=== PATIENT | male | born 1960 | race Caucasian/White ===

== ENCOUNTER 2016-11-28 01:14 | Emergency (ER) | payer MEDICARE, OTHER ==
[~2016-11-28] VITALS: Ht 170.2 cm; Wt 140.0 kg
[~2016-11-28 01:14] MED LIST: ACET500C15 PO; ACET500V IVPush; ALBU0.63 NEB; AMOX1TAB12 PO; ATOR10TA9 PO; CLIN-60 PO; ETOD400T PO; FLUT15.88 INH; FURO-93 PO; FURO40TA6 PO; GEMF600T3 PO; GLIP10TA13 PO; HYDR-3138 PO; HYDR-3341 PO; INSU100C5 SQ-INSULIN; INSU100I18 SQ-INSULIN; INSU100I28 SQ-INSULIN; INSU100V8 SQ; IPRA3AMP IPPB; LISI-170 PO; METF10002 PO; METF500T PO; METO200T3 PO; METO25TA35 PO; MULT-108 PO; Magnesium Oxide PO; NICO1PAT10 TD; NYST60PO TP; POTA10TA5 PO; POTA20TA14 PO; SPIR25TA3 PO; VITA1TAB14 PO; VITS42.5 TD; ZIPR20CA2 PO; ZIPR40CA3 PO
[2016-11-28 01:19] VITALS: BP 136/70
[2016-11-28] MEDS ORDERED: ACETAMINOPHEN 325 MG TABLET PO ONE (01:30)
[2016-11-28] MEDS ORDERED: ACETAMINOPHEN 500 MG TABLET ONE (01:31)
== END 2016-11-28 02:35 | disposition home or self-care (01) ==
LOC: ED 01:21
DX: M79.1 Myalgia (principal); E11.9 Type 2 diabetes mellitus without complications; E78.00 Pure hypercholesterolemia, unspecified; F31.9 Bipolar disorder, unspecified; I11.9 Hypertensive heart disease without heart failure
CPT/HCPCS: 99283

== ENCOUNTER 2017-11-25 01:35 | Inpatient (IN) | payer MEDICARE, OTHER ==
[~2017-11-25] VITALS: Ht 170.2 cm; Wt 165.2 kg
[~2017-11-25 01:35] MED LIST changes: -ACET500V IVPush; +ACET500V7 IVPush; -CLIN-60 PO; +CLIN150C14 PO; -HYDR-3138 PO; +HYDR-3237 PO; -METO200T3 PO; +METO200T47 PO; +NICO-485 TD; -NICO1PAT10 TD
[2017-11-25] MEDS ORDERED: ZIPR60CA3 PO (01:46)
[2017-11-25] MEDS ORDERED: LATA2.5D2 EACHEYE (01:47)
[2017-11-25] MEDS ORDERED: INSU100V8 SQ ×2 (01:48→04:21)
[2017-11-25] MEDS ORDERED: FURO40TA6 PO (01:48)
[2017-11-25] MEDS ORDERED: LISI-170 PO (01:49)
[2017-11-25] MEDS ORDERED: METO200T47 PO (01:50)
[2017-11-25] MEDS ORDERED: METF500T27 PO (01:50)
[2017-11-25] MEDS ORDERED: RANI150C PO (01:51)
[2017-11-25] MEDS ORDERED: ALBU90AE INH (01:52)
[2017-11-25] MEDS ORDERED: CYCL-259 PO (01:53)
[2017-11-25] MEDS ORDERED: ATOR40TA78 PO (01:54)
[2017-11-25] MEDS ORDERED: ONDANSETRON ODT 4 MG ONE (01:56)
[2017-11-25] MEDS ORDERED: PROMETHAZINE 25 MG/ML, 1ML ONE (01:56)
[2017-11-25] MEDS ORDERED: ONDANSETRON ODT 4 MG PO ONE (02:00)
[2017-11-25] MEDS ORDERED: SODIUM CHLORIDE 0.9% 1,000ML IVBOLUS ONE (02:00)
[2017-11-25] MEDS ORDERED: PROMETHAZINE 25 MG/ML, 1ML IM ONE (02:00)
[2017-11-25] MEDS ORDERED: SODIUM CHLORIDE FLUSH 10ML SYR IVF ONE (02:00)
[2017-11-25 02:24] LABS: MEAN CORPUSCULAR HEMOGLOBIN 26.8 pg (27.5-34.5); MEAN CORPUSCULAR VOLUME 83.7 fL (81-97); MEAN PLATELET VOLUME 10.1 fL (7.4-10.4); PLATELET COUNT 173 x10^3/uL (130-400); RED BLOOD COUNT 3.73 x10^6/uL (4.38-5.82); RED CELL DISTRIBUTION WIDTH 15.8 % (9.4-14.8)
[2017-11-25 02:25] LABS: BASOPHILS % (AUTO) 0 % (0-1); EOSINOPHILS # (AUTO) 0.29 x10^3/uL (0-0.4); EOSINOPHILS % (AUTO) 4 % (1-7); LYMPHOCYTES # (AUTO) 1.22 x10^3/uL (1-3.4); LYMPHOCYTES % (AUTO) 15 % (22-44); MD SCAN; MONOCYTES # (AUTO) 0.74 x10^3/uL (0.2-0.8); MONOCYTES % (AUTO) 9 % (2-9); NEUTROPHILS # (AUTO) 5.99 x10^3/uL (1.8-6.8); NEUTROPHILS % (AUTO) 73 % (42-75)
[2017-11-25 02:45] LABS: ALANINE AMINOTRANSFERASE 28 U/L (12-78); ALBUMIN 2.2 g/dL (3.4-5.0); ANION GAP 3 mmol/L (5-15); CALCIUM 7.9 mg/dL (8.5-10.1); CHLORIDE 100 mmol/L (98-107); CREATININE 1.85 mg/dL (0.7-1.3)
[2017-11-25 02:47] LABS: ALKALINE PHOSPHATASE 106 U/L (45-117); BILIRUBIN,TOTAL 0.3 mg/dL (0.2-1.0); TOTAL PROTEIN 5.7 g/dL (6.4-8.2)
[2017-11-25] MEDS ORDERED: ASPI-496 PO (02:58)
[2017-11-25] MEDS ORDERED: FERR-51 PO (02:59)
[2017-11-25] MEDS ORDERED: AMLO5TAB2 PO (02:59)
[2017-11-25] MEDS ORDERED: ALBUTEROL/IPRATROPIUM 2.5MG/0.5MG, 3 ML ONE (03:21)
[2017-11-25] MEDS ORDERED: ALBUTEROL/IPRATROPIUM 2.5MG/0.5MG, 3 ML NPPB ONE (03:30)
[2017-11-25] MEDS ORDERED: methylPREDNISolone SOD SUCC 125 MG/2 ML IVPush ONE (03:30)
[2017-11-25 03:31] LABS: TROPONIN I 0.025 ng/mL (0.000-0.045)
[2017-11-25] MEDS ORDERED: methylPREDNISolone SOD SUCC 125 MG/2 ML ONE (03:56)
[2017-11-25] MEDS ORDERED: FUROSEMIDE 40 MG/4 ML ONE (03:56)
[2017-11-25] MEDS ORDERED: FUROSEMIDE 40 MG/4 ML IV ONE (04:00)
[2017-11-25] MEDS ORDERED: MAGN420T PO (04:21)
[2017-11-25] MEDS ORDERED: CHOL500045 PO (04:44)
[2017-11-25] MEDS ORDERED: FLUTICASONE PROPIONATE 0.05% INH (04:47)
[2017-11-25] MEDS ORDERED: LABETALOL 5MG/ML, 20ML IVPush PRN (05:30)
[2017-11-25] MEDS ORDERED: PROMETHAZINE 25 MG/ML, 1ML IM PRN (05:30)
[2017-11-25] MEDS ORDERED: POLYETHYLENE GLYCOL 17 GM PACKET PO PRN (05:30)
[2017-11-25] MEDS ORDERED: BISACODYL 10 MG SUPP PR PRN ×2 (05:30→11:00)
[2017-11-25] MEDS ORDERED: hydrALAzine 20 MG/ML, 1ML IVPush PRN (05:30)
[2017-11-25] MEDS ORDERED: OXYcodone IR 5MG TABLET PO PRN (05:30)
[2017-11-25] MEDS ORDERED: morphine SULFATE 10 MG/ML, 1ML IVPush PRN (05:30)
[2017-11-25] MEDS ORDERED: ONDANSETRON 2MG/ML, 2ML IVPush PRN (05:30)
[2017-11-25] MEDS ORDERED: DOCUSATE 100 MG CAPSULE PO PRN (05:30)
[2017-11-25] MEDS ORDERED: ONDANSETRON ODT 4 MG PO PRN (05:30)
[2017-11-25] MEDS: methylPREDNISolone SOD SUCC 125 MG/2 ML IVPush SCH ×4 (05:55→23:28)
[2017-11-25] MEDS: HEPARIN 5,000 UNITS/ML, 1ML SQ SCH ×3 (05:55→21:12)
[2017-11-25 06:11] VITALS: BP 98/44
[2017-11-25] MEDS: ALBUTEROL/IPRATROPIUM 2.5MG/0.5MG, 3 ML IPPB SCH ×2 (06:26→10:16)
[2017-11-25 06:43] LABS: FREE T4 (FREE THYROXINE) 1.06 ng/dL (0.76-1.46); THYROID STIMULATING HORMONE 1.5 mIU/L (0.358-3.740)
[2017-11-25] MEDS: INSULIN LISPRO 100 UNITS/ML, PEN SQ-INSULIN SCH ×4 (07:00→23:23)
[2017-11-25 07:06] LABS: HEMOGLOBIN A1C 5.8 % (4.2-6.3)
[2017-11-25] MEDS ORDERED: FERROUS SULFATE 325 MG TABLET PO SCH (09:00)
[2017-11-25] MEDS: DILTIAZEM 60 MG TABLET PO SCH ×3 (09:00→21:00)
[2017-11-25] MEDS ORDERED: ASPIRIN 81 MG TABLET EC PO SCH (09:00)
[2017-11-25] MEDS: MAGNESIUM OXIDE 400 MG TABLET PO SCH (09:00)
[2017-11-25] MEDS: AMLODIPINE 5 MG TABLET PO SCH (09:00)
[2017-11-25] MEDS ORDERED: MIDAZOLAM 1 MG/ML, 5ML IVPush ONE (10:00)
[2017-11-25] MEDS ORDERED: ROCURONIUM 10 MG/ML,10ML IVPush ONE (10:00)
[2017-11-25] MEDS: ALBUTEROL/IPRATROPIUM 2.5MG/0.5MG, 3 ML INLINE SCH ×5 (10:16→22:41)
[2017-11-25] MEDS: ASPIRIN 81 MG TABLET CHEW PO SCH (10:20)
[2017-11-25] MEDS: ZIPRASIDONE 20MG CAPSULE PO SCH (10:20)
[2017-11-25] MEDS: FUROSEMIDE 40 MG/4 ML IV SCH ×2 (10:20→17:16)
[2017-11-25] MEDS: FAMOTIDINE 20 MG/2 ML IVPush SCH ×2 (10:20→21:12)
[2017-11-25 10:33] LABS: MICROSCOPIC INDICATED
[2017-11-25] MEDS ORDERED: PROPOFOL 100 ML IV PRN (10:51)
[2017-11-25] MEDS ORDERED: PHARMACY MAY ADJ FOR RENAL FX MC SCH (11:00)
[2017-11-25] MEDS ORDERED: INSULIN LISPRO 100 UNITS/ML, PEN SQ-INSULIN SCH (11:00)
[2017-11-25] MEDS ORDERED: FENTANYL PF 100 MCG/2ML IVPush PRN (11:00)
[2017-11-25] MEDS ORDERED: DEXTROSE 4 GM TAB.CHEW PO PRN (11:00)
[2017-11-25] MEDS ORDERED: LIDOCAINE-MPF 1%, 2ML ENDO PRN (11:00)
[2017-11-25] MEDS ORDERED: FAMOTIDINE 20 MG/2 ML IV SCH (11:00)
[2017-11-25] MEDS ORDERED: DEXTROSE 50%, 50ML SYRINGE IVPush PRN (11:00)
[2017-11-25] MEDS ORDERED: SENNOSIDES 8.8 MG/5 ML ORAL SOL NG PRN (11:00)
[2017-11-25] MEDS ORDERED: GLUCAGON 1 MG IM PRN (11:00)
[2017-11-25] MEDS ORDERED: LACTULOSE 20 GM/30 ML UDC NG PRN (11:00)
[2017-11-25] MEDS ORDERED: SENNA/DOCUSATE TABLET NG PRN (11:00)
[2017-11-25] MEDS: SODIUM CHLORIDE FLUSH 10ML SYR IVF SCH ×2 (11:39→21:17)
[2017-11-25] MEDS: FERROUS SULFATE 220 MG/5 ML ORAL SOL PO SCH (11:40)
[2017-11-25 12:39] LABS: CULTURE INDICATED? NO
[2017-11-25] MEDS ORDERED: PROPOFOL 10 MG/ML, 100ML IV ONE (15:57)
[2017-11-25] MEDS ORDERED: VECURONIUM 10 MG ONE (15:57)
[2017-11-25] MEDS ORDERED: MIDAZOLAM 1 MG/ML, 5ML ONE (15:57)
[2017-11-25] MEDS ORDERED: ROCURONIUM 10MG/ML,5ML ONE (15:57)
[2017-11-25] MEDS: ATORVASTATIN 40 MG TABLET PO SCH (21:13)
[2017-11-25] MEDS: FUROSEMIDE 100 MG in SODIUM CHLORIDE 0.9% 90 ML IV SCH (21:14)
[2017-11-25] MEDS: LATANOPROST OPHTH 0.005%, 2.5ML EACHEYE SCH (21:29)
[2017-11-26] MEDS: DILTIAZEM 60 MG TABLET PO SCH ×4 (03:00→21:08)
[2017-11-26] MEDS: ALBUTEROL/IPRATROPIUM 2.5MG/0.5MG, 3 ML INLINE SCH ×6 (03:00→23:20)
[2017-11-26 04:35] LABS: BASOPHILS # (AUTO) 0.01 x10^3/uL (0-0.1); BASOPHILS % (AUTO) 0 % (0-1); EOSINOPHILS % (AUTO) 0 % (1-7); LYMPHOCYTES # (AUTO) 0.39 x10^3/uL (1-3.4); LYMPHOCYTES % (AUTO) 8 % (22-44); MD NO; MEAN CORPUSCULAR HEMOGLOBIN 26.5 pg (27.5-34.5); MEAN CORPUSCULAR HGB CONC 31.9 g/dL (33.2-36.2); MEAN CORPUSCULAR VOLUME 83.3 fL (81-97); MEAN PLATELET VOLUME 9.9 fL (7.4-10.4); MONOCYTES # (AUTO) 0.29 x10^3/uL (0.2-0.8); MONOCYTES % (AUTO) 6 % (2-9); NEUTROPHILS # (AUTO) 4.16 x10^3/uL (1.8-6.8); NEUTROPHILS % (AUTO) 86 % (42-75); PLATELET COUNT 165 x10^3/uL (130-400); RED BLOOD COUNT 3.82 x10^6/uL (4.38-5.82); RED CELL DISTRIBUTION WIDTH 15.4 % (9.4-14.8)
[2017-11-26 04:40] VITALS: BP 142/70
[2017-11-26 04:43] LABS: ALANINE AMINOTRANSFERASE 35 U/L (12-78); ALBUMIN 2.3 g/dL (3.4-5.0); ANION GAP 4 mmol/L (5-15); CALCIUM 8.5 mg/dL (8.5-10.1); CHLORIDE 98 mmol/L (98-107)
[2017-11-26 04:47] LABS: ALKALINE PHOSPHATASE 101 U/L (45-117); BILIRUBIN,TOTAL 0.2 mg/dL (0.2-1.0); CHOL/HDL RATIO 2.9; CHOLESTEROL, TOTAL 92 mg/dL (140-239); CREATININE 1.77 mg/dL (0.7-1.3); HDL CHOL % 35 % (26-37); HDL CHOLESTEROL (DIRECT) 32 mg/dL (40-60); LDL CHOLESTEROL,CALCULATED 29 mg/dL (54-169); LDL/HDL RATIO 0.9 (0.5-3.0); TOTAL PROTEIN 5.8 g/dL (6.4-8.2); TRIGLYCERIDES 156 mg/dL (50-200); VLDL CHOLESTEROL 31 mg/dL (0-25)
[2017-11-26] MEDS: methylPREDNISolone SOD SUCC 125 MG/2 ML IVPush SCH ×4 (05:40→23:59)
[2017-11-26] MEDS: HEPARIN 5,000 UNITS/ML, 1ML SQ SCH ×3 (05:40→21:07)
[2017-11-26] MEDS: INSULIN LISPRO 100 UNITS/ML, PEN SQ-INSULIN SCH ×4 (05:45→20:58)
[2017-11-26] MEDS: AMLODIPINE 5 MG TABLET PO SCH (07:32)
[2017-11-26] MEDS: ZIPRASIDONE 20MG CAPSULE PO SCH (07:32)
[2017-11-26] MEDS: ASPIRIN 81 MG TABLET CHEW PO SCH (07:32)
[2017-11-26] MEDS: FAMOTIDINE 20 MG/2 ML IVPush SCH ×2 (07:32→21:07)
[2017-11-26] MEDS: FERROUS SULFATE 220 MG/5 ML ORAL SOL PO SCH (07:33)
[2017-11-26] MEDS: MAGNESIUM OXIDE 400 MG TABLET PO SCH (07:33)
[2017-11-26] MEDS: SODIUM CHLORIDE FLUSH 10ML SYR IVF SCH ×2 (07:33→20:57)
[2017-11-26] MEDS: AcetaZOLAMIDE INJ 500 MG IVPush SCH ×2 (11:49→23:59)
[2017-11-26] MEDS: FUROSEMIDE 100 MG in SODIUM CHLORIDE 0.9% 90 ML IV SCH (18:07)
[2017-11-26] MEDS: LATANOPROST OPHTH 0.005%, 2.5ML EACHEYE SCH (20:57)
[2017-11-26] MEDS: INSULIN GLARGINE 100 UNITS/ML, PEN SQ-INSULIN SCH (20:57)
[2017-11-26] MEDS: ATORVASTATIN 40 MG TABLET PO SCH (21:07)
[2017-11-27] MEDS: ALBUTEROL/IPRATROPIUM 2.5MG/0.5MG, 3 ML INLINE SCH ×6 (03:00→22:46)
[2017-11-27] MEDS: DILTIAZEM 60 MG TABLET PO SCH ×4 (04:07→20:52)
[2017-11-27 04:52] LABS: CALCIUM 8.4 mg/dL (8.5-10.1); CHLORIDE 96 mmol/L (98-107)
[2017-11-27 04:54] LABS: BASOPHILS # (AUTO) 0.01 x10^3/uL (0-0.1); BASOPHILS % (AUTO) 0 % (0-1); EOSINOPHILS % (AUTO) 0 % (1-7); LYMPHOCYTES # (AUTO) 0.39 x10^3/uL (1-3.4); LYMPHOCYTES % (AUTO) 4 % (22-44); MD NO; MEAN CORPUSCULAR HEMOGLOBIN 26.5 pg (27.5-34.5); MEAN CORPUSCULAR HGB CONC 32.2 g/dL (33.2-36.2); MEAN CORPUSCULAR VOLUME 82.4 fL (81-97); MEAN PLATELET VOLUME 10.7 fL (7.4-10.4); MONOCYTES # (AUTO) 0.54 x10^3/uL (0.2-0.8); MONOCYTES % (AUTO) 5 % (2-9); NEUTROPHILS # (AUTO) 9.13 x10^3/uL (1.8-6.8); NEUTROPHILS % (AUTO) 91 % (42-75); PLATELET COUNT 181 x10^3/uL (130-400); RED BLOOD COUNT 4.02 x10^6/uL (4.38-5.82); RED CELL DISTRIBUTION WIDTH 15.6 % (9.4-14.8)
[2017-11-27 04:56] LABS: ANION GAP 8 mmol/L (5-15); CREATININE 1.91 mg/dL (0.7-1.3)
[2017-11-27] MEDS: HEPARIN 5,000 UNITS/ML, 1ML SQ SCH ×3 (05:28→20:52)
[2017-11-27] MEDS: methylPREDNISolone SOD SUCC 125 MG/2 ML IVPush SCH ×4 (05:28→23:05)
[2017-11-27] MEDS: INSULIN LISPRO 100 UNITS/ML, PEN SQ-INSULIN SCH ×4 (08:46→20:59)
[2017-11-27] MEDS: FAMOTIDINE 20 MG/2 ML IVPush SCH ×2 (08:46→20:51)
[2017-11-27] MEDS: SODIUM CHLORIDE FLUSH 10ML SYR IVF SCH ×2 (08:46→20:59)
[2017-11-27] MEDS: INSULIN GLARGINE 100 UNITS/ML, PEN SQ-INSULIN SCH ×2 (08:46→14:48)
[2017-11-27] MEDS: MAGNESIUM OXIDE 400 MG TABLET PO SCH (08:47)
[2017-11-27] MEDS: ASPIRIN 81 MG TABLET CHEW PO SCH (08:47)
[2017-11-27] MEDS: ZIPRASIDONE 20MG CAPSULE PO SCH (08:47)
[2017-11-27] MEDS: AMLODIPINE 5 MG TABLET PO SCH (08:47)
[2017-11-27] MEDS: FERROUS SULFATE 220 MG/5 ML ORAL SOL PO SCH (08:53)
[2017-11-27] MEDS ORDERED: INSULIN GLARGINE 100 UNITS/ML, PEN SQ-INSULIN ONE (11:30)
[2017-11-27] MEDS: AcetaZOLAMIDE INJ 500 MG IVPush SCH ×2 (12:32→22:57)
[2017-11-27] MEDS ORDERED: AcetaZOLAMIDE INJ 500 MG IVPush SCH (18:00)
[2017-11-27 20:00] VITALS: BP 124/47
[2017-11-27] MEDS: LATANOPROST OPHTH 0.005%, 2.5ML EACHEYE SCH (20:51)
[2017-11-27] MEDS: ATORVASTATIN 40 MG TABLET PO SCH (20:52)
[2017-11-28] MEDS: DILTIAZEM 60 MG TABLET PO SCH ×4 (02:12→20:53)
[2017-11-28] MEDS: INSULIN GLARGINE 100 UNITS/ML, PEN SQ-INSULIN SCH ×3 (02:15→20:47)
[2017-11-28] MEDS: ALBUTEROL/IPRATROPIUM 2.5MG/0.5MG, 3 ML INLINE SCH ×6 (02:27→23:00)
[2017-11-28 04:40] LABS: ANION GAP 4 mmol/L (5-15); CALCIUM 8.2 mg/dL (8.5-10.1); CHLORIDE 97 mmol/L (98-107)
[2017-11-28 04:43] LABS: CREATININE 1.66 mg/dL (0.7-1.3); TRIGLYCERIDES 161 mg/dL (50-200)
[2017-11-28 04:51] LABS: MEAN CORPUSCULAR HGB CONC 32.5 g/dL (33.2-36.2); MEAN CORPUSCULAR VOLUME 83.3 fL (81-97); PLATELET COUNT 167 x10^3/uL (130-400); RED BLOOD COUNT 3.96 x10^6/uL (4.38-5.82); RED CELL DISTRIBUTION WIDTH 15.6 % (9.4-14.8)
[2017-11-28 05:38] LABS: BASOPHILS # (AUTO) 0.01 x10^3/uL (0-0.1); BASOPHILS % (AUTO) 0 % (0-1); EOSINOPHILS % (AUTO) 0 % (1-7); LYMPHOCYTES # (AUTO) 0.25 x10^3/uL (1-3.4); LYMPHOCYTES % (AUTO) 3 % (22-44); MD SCAN; MONOCYTES # (AUTO) 0.15 x10^3/uL (0.2-0.8); MONOCYTES % (AUTO) 2 % (2-9); NEUTROPHILS # (AUTO) 8.88 x10^3/uL (1.8-6.8); NEUTROPHILS % (AUTO) 96 % (42-75)
[2017-11-28] MEDS: methylPREDNISolone SOD SUCC 125 MG/2 ML IVPush SCH ×4 (06:09→23:37)
[2017-11-28] MEDS: HEPARIN 5,000 UNITS/ML, 1ML SQ SCH ×3 (06:09→22:35)
[2017-11-28] MEDS: FAMOTIDINE 20 MG/2 ML IVPush SCH ×2 (08:19→20:53)
[2017-11-28] MEDS: SODIUM CHLORIDE FLUSH 10ML SYR IVF SCH ×2 (08:19→20:53)
[2017-11-28] MEDS: INSULIN LISPRO 100 UNITS/ML, PEN SQ-INSULIN SCH ×4 (08:19→20:46)
[2017-11-28] MEDS: ZIPRASIDONE 20MG CAPSULE PO SCH (08:20)
[2017-11-28] MEDS: ASPIRIN 81 MG TABLET CHEW PO SCH (08:20)
[2017-11-28] MEDS: MAGNESIUM OXIDE 400 MG TABLET PO SCH (08:20)
[2017-11-28] MEDS: FERROUS SULFATE 220 MG/5 ML ORAL SOL PO SCH (08:20)
[2017-11-28] MEDS: AMLODIPINE 5 MG TABLET PO SCH (08:20)
[2017-11-28] MEDS: CHOLECALCIFEROL 1,000 UNIT TABLET PO SCH (08:20)
[2017-11-28 08:25] VITALS: BP 115/46
[2017-11-28] MEDS: FUROSEMIDE 20 MG/2 ML IV SCH ×2 (10:24→20:53)
[2017-11-28] MEDS: AcetaZOLAMIDE INJ 500 MG IVPush SCH ×2 (12:03→23:36)
[2017-11-28] MEDS: LATANOPROST OPHTH 0.005%, 2.5ML EACHEYE SCH (20:53)
[2017-11-28] MEDS: ATORVASTATIN 40 MG TABLET PO SCH (20:53)
[2017-11-28] MEDS: ACETAMINOPHEN 325 MG TABLET PO PRN (23:36)
[2017-11-29] MEDS: ALBUTEROL/IPRATROPIUM 2.5MG/0.5MG, 3 ML INLINE SCH ×5 (03:00→20:05)
[2017-11-29] MEDS: DILTIAZEM 60 MG TABLET PO SCH ×4 (03:29→20:36)
[2017-11-29 04:32] LABS: ANION GAP 7 mmol/L (5-15); CALCIUM 8.7 mg/dL (8.5-10.1); CHLORIDE 97 mmol/L (98-107); CREATININE 1.57 mg/dL (0.7-1.3)
[2017-11-29] MEDS: methylPREDNISolone SOD SUCC 125 MG/2 ML IVPush SCH (05:52)
[2017-11-29] MEDS: HEPARIN 5,000 UNITS/ML, 1ML SQ SCH ×2 (05:53→16:36)
[2017-11-29] MEDS: FAMOTIDINE 20 MG/2 ML IVPush SCH (07:47)
[2017-11-29] MEDS: FUROSEMIDE 20 MG/2 ML IV SCH ×2 (07:47→20:35)
[2017-11-29] MEDS: SODIUM CHLORIDE FLUSH 10ML SYR IVF SCH ×2 (07:47→20:35)
[2017-11-29] MEDS: INSULIN LISPRO 100 UNITS/ML, PEN SQ-INSULIN SCH ×4 (07:47→20:37)
[2017-11-29] MEDS: ASPIRIN 81 MG TABLET CHEW PO SCH (07:48)
[2017-11-29] MEDS: MAGNESIUM OXIDE 400 MG TABLET PO SCH (07:48)
[2017-11-29] MEDS: ZIPRASIDONE 20MG CAPSULE PO SCH (07:48)
[2017-11-29] MEDS: FERROUS SULFATE 220 MG/5 ML ORAL SOL PO SCH (07:48)
[2017-11-29] MEDS: AMLODIPINE 5 MG TABLET PO SCH (07:48)
[2017-11-29] MEDS ORDERED: ALBUTEROL/IPRATROPIUM 2.5MG/0.5MG, 3 ML ONE (10:32)
[2017-11-29] MEDS: methylPREDNISolone SOD SUCC 40 MG/ML IVPush SCH ×2 (12:27→20:38)
[2017-11-29] MEDS: AcetaZOLAMIDE INJ 500 MG IVPush SCH (12:27)
[2017-11-29] MEDS: INSULIN GLARGINE 100 UNITS/ML, PEN SQ-INSULIN SCH ×2 (12:27→20:38)
[2017-11-29] MEDS: LATANOPROST OPHTH 0.005%, 2.5ML EACHEYE SCH (20:34)
[2017-11-29] MEDS: ATORVASTATIN 40 MG TABLET PO SCH (20:36)
[2017-11-29] MEDS: FAMOTIDINE 20 MG TABLET PO SCH (20:36)
[2017-11-30] MEDS: AcetaZOLAMIDE INJ 500 MG IVPush SCH ×2 (00:44→12:05)
[2017-11-30] MEDS: HEPARIN 5,000 UNITS/ML, 1ML SQ SCH ×3 (00:45→16:41)
[2017-11-30] MEDS: DILTIAZEM 60 MG TABLET PO SCH ×4 (03:23→20:08)
[2017-11-30 04:23] LABS: ANION GAP 4 mmol/L (5-15); CALCIUM 8.6 mg/dL (8.5-10.1); CHLORIDE 99 mmol/L (98-107)
[2017-11-30] MEDS: methylPREDNISolone SOD SUCC 40 MG/ML IVPush SCH ×2 (05:15→20:08)
[2017-11-30] MEDS: ALBUTEROL/IPRATROPIUM 2.5MG/0.5MG, 3 ML INLINE SCH ×4 (06:24→20:10)
[2017-11-30] MEDS: SODIUM CHLORIDE FLUSH 10ML SYR IVF SCH ×2 (08:09→20:09)
[2017-11-30] MEDS: FUROSEMIDE 20 MG/2 ML IV SCH ×2 (08:09→20:08)
[2017-11-30] MEDS: INSULIN LISPRO 100 UNITS/ML, PEN SQ-INSULIN SCH ×4 (08:09→20:08)
[2017-11-30] MEDS: AMLODIPINE 5 MG TABLET PO SCH (08:10)
[2017-11-30] MEDS: FAMOTIDINE 20 MG TABLET PO SCH ×2 (08:10→20:08)
[2017-11-30] MEDS: ASPIRIN 81 MG TABLET CHEW PO SCH (08:10)
[2017-11-30] MEDS: ZIPRASIDONE 20MG CAPSULE PO SCH (08:10)
[2017-11-30] MEDS: FERROUS SULFATE 220 MG/5 ML ORAL SOL PO SCH (08:11)
[2017-11-30] MEDS: MAGNESIUM OXIDE 400 MG TABLET PO SCH (08:18)
[2017-11-30] MEDS: INSULIN GLARGINE 100 UNITS/ML, PEN SQ-INSULIN SCH (13:07)
[2017-11-30 13:11] VITALS: BP 135/75
[2017-11-30 18:57] VITALS: BP 133/77
[2017-11-30] MEDS: ATORVASTATIN 40 MG TABLET PO SCH (20:08)
[2017-11-30] MEDS: LATANOPROST OPHTH 0.005%, 2.5ML EACHEYE SCH (20:09)
[2017-12-01 00:40] VITALS: BP 124/70
[2017-12-01] MEDS: AcetaZOLAMIDE INJ 500 MG IVPush SCH ×2 (00:45→12:08)
[2017-12-01] MEDS: HEPARIN 5,000 UNITS/ML, 1ML SQ SCH ×3 (00:45→15:50)
[2017-12-01] MEDS: DILTIAZEM 60 MG TABLET PO SCH ×4 (01:50→20:59)
[2017-12-01] MEDS: INSULIN GLARGINE 100 UNITS/ML, PEN SQ-INSULIN SCH ×2 (01:51→15:51)
[2017-12-01 05:28] LABS: CHLORIDE 100 mmol/L (98-107)
[2017-12-01 05:38] LABS: ANION GAP 6 mmol/L (5-15); CREATININE 1.44 mg/dL (0.7-1.3)
[2017-12-01 07:20] VITALS: BP 155/83
[2017-12-01] MEDS ORDERED: DILTIAZEM 30 MG TABLET ONE ×3 (08:13→20:38)
[2017-12-01] MEDS: ALBUTEROL/IPRATROPIUM 2.5MG/0.5MG, 3 ML INLINE SCH (08:14)
[2017-12-01] MEDS: FUROSEMIDE 20 MG/2 ML IV SCH ×2 (08:19→20:51)
[2017-12-01] MEDS: SODIUM CHLORIDE FLUSH 10ML SYR IVF SCH ×2 (08:19→20:52)
[2017-12-01] MEDS: methylPREDNISolone SOD SUCC 40 MG/ML IVPush SCH (08:19)
[2017-12-01] MEDS: INSULIN LISPRO 100 UNITS/ML, PEN SQ-INSULIN SCH ×4 (08:20→20:59)
[2017-12-01] MEDS: CHOLECALCIFEROL 1,000 UNIT TABLET PO SCH (08:21)
[2017-12-01] MEDS: MAGNESIUM OXIDE 400 MG TABLET PO SCH (08:21)
[2017-12-01] MEDS: ASPIRIN 81 MG TABLET CHEW PO SCH (08:21)
[2017-12-01] MEDS: ZIPRASIDONE 20MG CAPSULE PO SCH (08:21)
[2017-12-01] MEDS: FAMOTIDINE 20 MG TABLET PO SCH ×2 (08:21→20:51)
[2017-12-01] MEDS: AMLODIPINE 5 MG TABLET PO SCH (08:21)
[2017-12-01] MEDS: FERROUS SULFATE 325 MG TABLET PO SCH (08:21)
[2017-12-01 14:08] VITALS: BP 147/77
[2017-12-01 18:33] VITALS: BP 154/76
[2017-12-01] MEDS: ATORVASTATIN 40 MG TABLET PO SCH (20:51)
[2017-12-01] MEDS: LATANOPROST OPHTH 0.005%, 2.5ML EACHEYE SCH (20:52)
[2017-12-01] MEDS: ACETAMINOPHEN 325 MG TABLET PO PRN (22:53)
[2017-12-02] MEDS: HEPARIN 5,000 UNITS/ML, 1ML SQ SCH ×2 (00:21→09:42)
[2017-12-02] MEDS: AcetaZOLAMIDE INJ 500 MG IVPush SCH ×2 (00:21→12:04)
[2017-12-02 03:29] VITALS: BP 155/80
[2017-12-02] MEDS: DILTIAZEM 60 MG TABLET PO SCH ×3 (03:39→15:09)
[2017-12-02] MEDS: INSULIN GLARGINE 100 UNITS/ML, PEN SQ-INSULIN SCH (03:50)
[2017-12-02 05:13] LABS: ANION GAP 6 mmol/L (5-15); CALCIUM 8.9 mg/dL (8.5-10.1); CHLORIDE 99 mmol/L (98-107); CREATININE 1.35 mg/dL (0.7-1.3)
[2017-12-02] MEDS: INSULIN LISPRO 100 UNITS/ML, PEN SQ-INSULIN SCH ×3 (07:00→16:00)
[2017-12-02 08:00] VITALS: BP 120/71
[2017-12-02] MEDS: ZIPRASIDONE 20MG CAPSULE PO SCH (09:29)
[2017-12-02] MEDS: MAGNESIUM OXIDE 400 MG TABLET PO SCH (09:30)
[2017-12-02] MEDS: ASPIRIN 81 MG TABLET CHEW PO SCH (09:32)
[2017-12-02] MEDS: FAMOTIDINE 20 MG TABLET PO SCH (09:32)
[2017-12-02] MEDS: FERROUS SULFATE 325 MG TABLET PO SCH (09:33)
[2017-12-02] MEDS: AMLODIPINE 5 MG TABLET PO SCH (09:36)
[2017-12-02] MEDS: FUROSEMIDE 20 MG/2 ML IV SCH (09:49)
[2017-12-02] MEDS: SODIUM CHLORIDE FLUSH 10ML SYR IVF SCH (09:53)
[2017-12-02] MEDS ORDERED: ALBUTEROL/IPRATROPIUM 2.5MG/0.5MG, 3 ML NPPB PRN (11:00)
[2017-12-02 13:59] VITALS: BP 146/79
[2017-12-02] MEDS ORDERED: INSU100V8 SQ (18:47)
== END 2017-12-02 18:08 | disposition home or self-care (01) | DRG 208 ==
LOC: ED 04:12 → EDIP 04:20 → CCU 05:45 → 5SO 11-30 13:11
PROVIDERS: ADMIT Internal Medicine; ATTEND Internal Medicine
PROC: 0BH17EZ Insertion of Endotracheal Airway into Trachea, Via Natural or Artificial Opening (ICD-10-PCS; principal; 2017-11-25)
PROC: 5A09357 Assistance with Respiratory Ventilation, Less than 24 Consecutive Hours, Continuous Positive Airway Pressure (ICD-10-PCS; 2017-11-25)
PROC: 02HV33Z Insertion of Infusion Device into Superior Vena Cava, Percutaneous Approach (ICD-10-PCS; 2017-11-25)
PROC: 5A1935Z Respiratory Ventilation, Less than 24 Consecutive Hours (ICD-10-PCS; 2017-11-26)
PROC: 5A09357 Assistance with Respiratory Ventilation, Less than 24 Consecutive Hours, Continuous Positive Airway Pressure (ICD-10-PCS; 2017-11-30)
DX: J96.21 Acute and chronic respiratory failure with hypoxia (principal); N17.0 Acute kidney failure with tubular necrosis; E43 Unspecified severe protein-calorie malnutrition; I26.09 Other pulmonary embolism with acute cor pulmonale; I50.23 Acute on chronic systolic (congestive) heart failure; J44.1 Chronic obstructive pulmonary disease with (acute) exacerbation; Z68.43 Body mass index [BMI] 50.0-59.9, adult; E87.2 Acidosis; J98.11 Atelectasis; I11.0 Hypertensive heart disease with heart failure; J96.22 Acute and chronic respiratory failure with hypercapnia; I27.20 Pulmonary hypertension, unspecified; E78.5 Hyperlipidemia, unspecified; E11.69 Type 2 diabetes mellitus with other specified complication; D63.8 Anemia in other chronic diseases classified elsewhere; E66.01 Morbid (severe) obesity due to excess calories; E78.00 Pure hypercholesterolemia, unspecified; E86.0 Dehydration; F31.9 Bipolar disorder, unspecified; G43.909 Migraine, unspecified, not intractable, without status migrainosus; G47.33 Obstructive sleep apnea (adult) (pediatric); I87.8 Other specified disorders of veins; K52.9 Noninfective gastroenteritis and colitis, unspecified; Z79.4 Long term (current) use of insulin; Z83.3 Family history of diabetes mellitus; Z87.891 Personal history of nicotine dependence; Z91.19 Patient's noncompliance with other medical treatment and regimen; Z99.81 Dependence on supplemental oxygen
CPT/HCPCS: 36415; 36600; 71045; 80048; 80053; 80061; 81001; 82040; 82803; 82805; 82962; 83036; 83690; 83735; 83880; 84100; 84439; 84443; 84478; 84484; 85025; 87070; 87081; 87147; 87205; 93005; 93970; 94002; 94640; 94660; 96372; 96374; 96375; C8929; J1644; J1940; J2250; J2550; J2704; J7620; Q0162; J1120; J1815; J2920; J2930; J7030; S0028

== ENCOUNTER 2017-12-29 23:32 | Inpatient (IN) | payer MEDICAID, MEDICARE, OTHER ==
[~2017-12-29] VITALS: Ht 170.2 cm; Wt 158.3 kg
[~2017-12-29 23:32] MED LIST changes: +ALBU90AE INH; +AMLO5TAB2 PO; +ASPI-496 PO; +ATOR40TA78 PO; +CHOL500045 PO; +CYCL-259 PO; +FERR-51 PO; +FLUTICASONE PROPIONATE 0.05% INH; +LATA2.5D2 EACHEYE; +MAGN420T PO; +METF500T27 PO; +RANI150C PO; +ZIPR60CA3 PO
[2017-12-30] MEDS ORDERED: METF500T5 PO (00:15)
[2017-12-30] MEDS ORDERED: FLUTICASONE PROP NAS (00:15)
[2017-12-30 00:18] LABS: MEAN CORPUSCULAR HEMOGLOBIN 26.6 pg (27.5-34.5); MEAN CORPUSCULAR HGB CONC 32.4 g/dL (33.2-36.2); MEAN CORPUSCULAR VOLUME 82.1 fL (81-97); MEAN PLATELET VOLUME 9.6 fL (7.4-10.4); PLATELET COUNT 223 x10^3/uL (130-400); RED BLOOD COUNT 3.95 x10^6/uL (4.38-5.82); RED CELL DISTRIBUTION WIDTH 15.8 % (9.4-14.8)
[2017-12-30 00:25] LABS: INTERNATIONAL NORMALIZED RATIO 1.04 (0.93-1.1); PROTHROMBIN TIME 10.8 Seconds (9.6-11.5)
[2017-12-30 00:31] LABS: ALANINE AMINOTRANSFERASE 27 U/L (12-78); ALBUMIN 2.7 g/dL (3.4-5.0); ANION GAP 3 mmol/L (5-15); CALCIUM 8.5 mg/dL (8.5-10.1); CHLORIDE 102 mmol/L (98-107)
[2017-12-30 00:35] LABS: ALKALINE PHOSPHATASE 120 U/L (45-117); BILIRUBIN,TOTAL 0.4 mg/dL (0.2-1.0); TROPONIN I 0.023 ng/mL (0.000-0.045)
[2017-12-30 00:56] LABS: BASOPHILS % (AUTO) 0 % (0-1); EOSINOPHILS # (AUTO) 0.28 x10^3/uL (0-0.4); EOSINOPHILS % (AUTO) 3 % (1-7); LYMPHOCYTES # (AUTO) 1.27 x10^3/uL (1-3.4); LYMPHOCYTES % (AUTO) 14 % (22-44); MD SCAN; MONOCYTES # (AUTO) 0.16 x10^3/uL (0.2-0.8); MONOCYTES % (AUTO) 2 % (2-9); NEUTROPHILS # (AUTO) 7.49 x10^3/uL (1.8-6.8); NEUTROPHILS % (AUTO) 81 % (42-75)
[2017-12-30] MEDS ORDERED: FUROSEMIDE 40 MG/4 ML ONE (01:13)
[2017-12-30] MEDS ORDERED: ENOXAPARIN 150 MG/ML SQ ONE (01:30)
[2017-12-30] MEDS ORDERED: FUROSEMIDE 40 MG/4 ML IV ONE ×2 (01:30→13:30)
[2017-12-30 02:30] VITALS: BP 130/86
[2017-12-30] MEDS ORDERED: PROMETHAZINE 25 MG/ML, 1ML IM PRN (03:00)
[2017-12-30] MEDS ORDERED: DILTIAZEM 125 MG in SODIUM CHLORIDE 0.9% 100 ML IV PRN ×2 (03:00→04:30)
[2017-12-30] MEDS ORDERED: ONDANSETRON ODT 4 MG PO PRN (03:00)
[2017-12-30] MEDS ORDERED: ONDANSETRON 2MG/ML, 2ML IVPush PRN (03:00)
[2017-12-30] MEDS ORDERED: POLYETHYLENE GLYCOL 17 GM PACKET PO PRN (03:00)
[2017-12-30] MEDS ORDERED: ACETAMINOPHEN 325 MG TABLET PO PRN (03:00)
[2017-12-30] MEDS ORDERED: NITROGLYCERIN 0.4 MG BOTTLE (25 TABS) SL PRN (03:00)
[2017-12-30] MEDS ORDERED: OXYcodone/APAP 5/325MG TABLET PO PRN (03:00)
[2017-12-30] MEDS ORDERED: morphine SULFATE 10 MG/ML, 1ML IVPush PRN (03:00)
[2017-12-30] MEDS ORDERED: hydrALAzine 20 MG/ML, 1ML IVPush PRN (03:00)
[2017-12-30] MEDS ORDERED: BISACODYL 10 MG SUPP PR PRN (03:00)
[2017-12-30] MEDS ORDERED: DOCUSATE 100 MG CAPSULE PO PRN (03:00)
[2017-12-30 03:28] LABS: HEMOGLOBIN A1C 7.1 % (4.2-6.3)
[2017-12-30 03:30] LABS: FREE T4 (FREE THYROXINE) 1.17 ng/dL (0.76-1.46); THYROID STIMULATING HORMONE 2.3 mIU/L (0.358-3.740)
[2017-12-30] MEDS: DOXYCYCLINE 100MG TABLET PO SCH ×2 (04:31→14:25)
[2017-12-30] MEDS: methylPREDNISolone SOD SUCC 125 MG/2 ML IVPush SCH ×4 (04:32→23:09)
[2017-12-30 04:51] LABS: MICROSCOPIC AUTO
[2017-12-30 04:52] LABS: CULTURE INDICATED? NO
[2017-12-30] MEDS: CEFTRIAXONE PMX 2GM/50ML 50 ML IV SCH (06:06)
[2017-12-30 07:49] VITALS: BP 168/111
[2017-12-30] MEDS: FAMOTIDINE 20 MG TABLET PO SCH (08:25)
[2017-12-30] MEDS: INSULIN GLARGINE 100 UNITS/ML, PEN SQ-INSULIN SCH ×2 (08:25→20:24)
[2017-12-30] MEDS: ASPIRIN 81 MG TABLET CHEW PO SCH (08:25)
[2017-12-30] MEDS: FERROUS SULFATE 325 MG TABLET PO SCH (08:25)
[2017-12-30] MEDS: METOPROLOL SUCCINATE 100 MG TAB.ER.24H PO SCH (08:25)
[2017-12-30] MEDS: INSULIN LISPRO 100 UNITS/ML, PEN SQ-INSULIN SCH ×4 (08:25→20:25)
[2017-12-30] MEDS: CYCLOBENZAPRINE 10 MG TABLET PO SCH ×3 (08:26→20:23)
[2017-12-30] MEDS: FUROSEMIDE 40 MG TABLET PO SCH ×2 (08:26→20:23)
[2017-12-30] MEDS: AMLODIPINE 5 MG TABLET PO SCH (08:26)
[2017-12-30] MEDS: ZIPRASIDONE 20MG CAPSULE PO SCH (08:26)
[2017-12-30] MEDS: ALBUTEROL/IPRATROPIUM 2.5MG/0.5MG, 3 ML IPPB SCH ×3 (10:34→18:56)
[2017-12-30 13:11] VITALS: BP 126/84
[2017-12-30] MEDS: ENOXAPARIN 150 MG/ML SQ SCH (14:25)
[2017-12-30 19:00] VITALS: BP 111/72
[2017-12-30] MEDS: ATORVASTATIN 40 MG TABLET PO SCH (20:23)
[2017-12-31] MEDS: DOXYCYCLINE 100MG TABLET PO SCH ×2 (02:52→16:14)
[2017-12-31] MEDS: ENOXAPARIN 150 MG/ML SQ SCH ×2 (02:54→14:07)
[2017-12-31 02:57] VITALS: BP 131/84
[2017-12-31] MEDS ORDERED: DILTIAZEM 125 MG in SODIUM CHLORIDE 0.9% 100 ML IV PRN (04:30)
[2017-12-31] MEDS: methylPREDNISolone SOD SUCC 125 MG/2 ML IVPush SCH ×4 (05:12→22:34)
[2017-12-31] MEDS: CEFTRIAXONE PMX 2GM/50ML 50 ML IV SCH (05:12)
[2017-12-31 05:13] LABS: BASOPHILS # (AUTO) 0.05 x10^3/uL (0-0.1); BASOPHILS % (AUTO) 1 % (0-1); EOSINOPHILS % (AUTO) 0 % (1-7); LYMPHOCYTES # (AUTO) 0.58 x10^3/uL (1-3.4); LYMPHOCYTES % (AUTO) 6 % (22-44); MD NO; MEAN CORPUSCULAR HEMOGLOBIN 26.5 pg (27.5-34.5); MEAN CORPUSCULAR HGB CONC 32.4 g/dL (33.2-36.2); MEAN CORPUSCULAR VOLUME 81.7 fL (81-97); MEAN PLATELET VOLUME 10.7 fL (7.4-10.4); MONOCYTES # (AUTO) 0.22 x10^3/uL (0.2-0.8); MONOCYTES % (AUTO) 2 % (2-9); NEUTROPHILS # (AUTO) 8.98 x10^3/uL (1.8-6.8); NEUTROPHILS % (AUTO) 91 % (42-75); PLATELET COUNT 232 x10^3/uL (130-400); RED BLOOD COUNT 4.17 x10^6/uL (4.38-5.82); RED CELL DISTRIBUTION WIDTH 15.5 % (9.4-14.8)
[2017-12-31 05:25] LABS: ALBUMIN 2.7 g/dL (3.4-5.0); ANION GAP 5 mmol/L (5-15); CALCIUM 8.4 mg/dL (8.5-10.1); CHLORIDE 96 mmol/L (98-107)
[2017-12-31 05:29] LABS: ALANINE AMINOTRANSFERASE 22 U/L (12-78); ALKALINE PHOSPHATASE 123 U/L (45-117); BILIRUBIN,TOTAL 0.3 mg/dL (0.2-1.0); CHOL/HDL RATIO 2.4; CHOLESTEROL, TOTAL 104 mg/dL (140-239); CREATININE 1.51 mg/dL (0.7-1.3); HDL CHOL % 41 % (26-37); HDL CHOLESTEROL (DIRECT) 43 mg/dL (40-60); LDL CHOLESTEROL,CALCULATED 26 mg/dL (54-169); LDL/HDL RATIO 0.6 (0.5-3.0); TOTAL PROTEIN 6.2 g/dL (6.4-8.2); TRIGLYCERIDES 173 mg/dL (50-200); VLDL CHOLESTEROL 35 mg/dL (0-25)
[2017-12-31 06:45] VITALS: BP 148/98
[2017-12-31] MEDS: ALBUTEROL/IPRATROPIUM 2.5MG/0.5MG, 3 ML IPPB SCH ×4 (07:00→20:29)
[2017-12-31] MEDS: INSULIN GLARGINE 100 UNITS/ML, PEN SQ-INSULIN SCH ×3 (08:17→22:33)
[2017-12-31] MEDS: ASPIRIN 81 MG TABLET CHEW PO SCH (08:18)
[2017-12-31] MEDS: INSULIN LISPRO 100 UNITS/ML, PEN SQ-INSULIN SCH ×4 (08:18→22:32)
[2017-12-31] MEDS: CYCLOBENZAPRINE 10 MG TABLET PO SCH ×3 (08:18→22:34)
[2017-12-31] MEDS: FAMOTIDINE 20 MG TABLET PO SCH ×2 (08:18→22:33)
[2017-12-31] MEDS: ZIPRASIDONE 20MG CAPSULE PO SCH (08:18)
[2017-12-31] MEDS: AMLODIPINE 5 MG TABLET PO SCH (08:18)
[2017-12-31] MEDS: FUROSEMIDE 40 MG TABLET PO SCH ×2 (08:19→22:33)
[2017-12-31] MEDS: METOPROLOL SUCCINATE 100 MG TAB.ER.24H PO SCH (08:19)
[2017-12-31] MEDS: FERROUS SULFATE 325 MG TABLET PO SCH (10:25)
[2017-12-31 13:24] VITALS: BP 122/76
[2017-12-31 20:00] VITALS: BP 121/75
[2017-12-31] MEDS: ATORVASTATIN 40 MG TABLET PO SCH (22:33)
[2018-01-01 02:00] VITALS: BP 144/83
[2018-01-01] MEDS: ENOXAPARIN 150 MG/ML SQ SCH ×2 (03:10→17:34)
[2018-01-01] MEDS: DOXYCYCLINE 100MG TABLET PO SCH ×2 (03:11→17:34)
[2018-01-01] MEDS: CEFTRIAXONE PMX 2GM/50ML 50 ML IV SCH (05:31)
[2018-01-01] MEDS: methylPREDNISolone SOD SUCC 125 MG/2 ML IVPush SCH ×4 (05:31→23:57)
[2018-01-01 06:01] LABS: CALCIUM 8.2 mg/dL (8.5-10.1); CREATININE 1.43 mg/dL (0.7-1.3)
[2018-01-01 06:14] LABS: ANION GAP 3 mmol/L (5-15); CHLORIDE 98 mmol/L (98-107)
[2018-01-01] MEDS: ALBUTEROL/IPRATROPIUM 2.5MG/0.5MG, 3 ML IPPB SCH ×2 (06:38→10:28)
[2018-01-01 07:07] VITALS: BP 124/76
[2018-01-01] MEDS: ASPIRIN 81 MG TABLET CHEW PO SCH (08:36)
[2018-01-01] MEDS: INSULIN LISPRO 100 UNITS/ML, PEN SQ-INSULIN SCH ×4 (08:36→21:42)
[2018-01-01] MEDS: INSULIN GLARGINE 100 UNITS/ML, PEN SQ-INSULIN SCH ×2 (08:36→21:43)
[2018-01-01] MEDS: FERROUS SULFATE 325 MG TABLET PO SCH (08:36)
[2018-01-01] MEDS: CYCLOBENZAPRINE 10 MG TABLET PO SCH ×3 (08:36→21:41)
[2018-01-01] MEDS: AMLODIPINE 5 MG TABLET PO SCH (08:37)
[2018-01-01] MEDS: FUROSEMIDE 40 MG TABLET PO SCH ×2 (08:37→21:41)
[2018-01-01] MEDS: ZIPRASIDONE 20MG CAPSULE PO SCH (08:37)
[2018-01-01] MEDS: FAMOTIDINE 20 MG TABLET PO SCH ×2 (08:37→21:42)
[2018-01-01] MEDS: METOPROLOL SUCCINATE 100 MG TAB.ER.24H PO SCH (08:38)
[2018-01-01 12:55] VITALS: BP 146/89
[2018-01-01] MEDS: ALBUTEROL/IPRATROPIUM 2.5MG/0.5MG, 3 ML NPPB SCH ×2 (14:06→20:05)
[2018-01-01 20:23] VITALS: BP 154/92
[2018-01-01] MEDS: ATORVASTATIN 40 MG TABLET PO SCH (21:42)
[2018-01-02 00:33] VITALS: BP 147/81
[2018-01-02 01:17] VITALS: BP_SYST 98; BP_SYST 99; BP_DIAS 60; BP_DIAS 64
[2018-01-02 01:18] VITALS: BP 105/66
[2018-01-02] MEDS: ENOXAPARIN 150 MG/ML SQ SCH ×2 (03:37→15:37)
[2018-01-02] MEDS: DOXYCYCLINE 100MG TABLET PO SCH ×2 (03:37→15:37)
[2018-01-02] MEDS: CEFTRIAXONE PMX 2GM/50ML 50 ML IV SCH (05:43)
[2018-01-02] MEDS: methylPREDNISolone SOD SUCC 125 MG/2 ML IVPush SCH ×4 (05:43→23:18)
[2018-01-02 05:57] LABS: CHLORIDE 96 mmol/L (98-107)
[2018-01-02] MEDS: METOPROLOL TARTRATE 25 MG TABLET PO SCH ×2 (06:00→18:15)
[2018-01-02 06:05] LABS: ANION GAP 6 mmol/L (5-15); CALCIUM 8.3 mg/dL (8.5-10.1); CREATININE 1.31 mg/dL (0.7-1.3)
[2018-01-02] MEDS: ALBUTEROL/IPRATROPIUM 2.5MG/0.5MG, 3 ML NPPB SCH ×4 (07:00→19:40)
[2018-01-02 07:22] VITALS: BP 138/98
[2018-01-02] MEDS: INSULIN LISPRO 100 UNITS/ML, PEN SQ-INSULIN SCH ×4 (09:53→21:00)
[2018-01-02] MEDS: INSULIN GLARGINE 100 UNITS/ML, PEN SQ-INSULIN SCH ×2 (09:54→20:59)
[2018-01-02] MEDS: METOPROLOL SUCCINATE 100 MG TAB.ER.24H PO SCH (09:55)
[2018-01-02] MEDS: CYCLOBENZAPRINE 10 MG TABLET PO SCH ×3 (09:55→20:59)
[2018-01-02] MEDS: FUROSEMIDE 40 MG TABLET PO SCH ×2 (09:56→20:59)
[2018-01-02] MEDS: ASPIRIN 81 MG TABLET CHEW PO SCH (09:56)
[2018-01-02] MEDS: FERROUS SULFATE 325 MG TABLET PO SCH (09:56)
[2018-01-02] MEDS: CHOLECALCIFEROL 1,000 UNIT TABLET PO SCH (09:56)
[2018-01-02] MEDS: AMLODIPINE 5 MG TABLET PO SCH (09:56)
[2018-01-02] MEDS: FAMOTIDINE 20 MG TABLET PO SCH ×2 (09:56→20:59)
[2018-01-02] MEDS: ZIPRASIDONE 20MG CAPSULE PO SCH (10:01)
[2018-01-02] MEDS: OXYcodone IR 5MG TABLET PO PRN (12:31)
[2018-01-02 13:41] LABS: O2 FLOW 3 L/min
[2018-01-02 15:30] VITALS: BP 128/89
[2018-01-02] MEDS ORDERED: DILTIAZEM 30 MG TABLET PO SCH (15:30)
[2018-01-02] MEDS ORDERED: DILTIAZEM 90 MG TABLET PO SCH (16:30)
[2018-01-02] MEDS ORDERED: METOPROLOL TARTRATE 25 MG TABLET PO SCH (18:00)
[2018-01-02] MEDS: FLUTICASONE/VILANTEROL 200-25MCG/INH INH SCH (18:15)
[2018-01-02 19:16] VITALS: BP 158/91
[2018-01-02] MEDS ORDERED: DILTIAZEM 30 MG TABLET ONE (20:42)
[2018-01-02] MEDS ORDERED: DILTIAZEM 60 MG TABLET ONE (20:42)
[2018-01-02] MEDS: DILTIAZEM 90 MG TABLET PO SCH (20:59)
[2018-01-02] MEDS: ATORVASTATIN 40 MG TABLET PO SCH (20:59)
[2018-01-03 01:03] VITALS: BP 128/79
[2018-01-03] MEDS: ENOXAPARIN 150 MG/ML SQ SCH (03:26)
[2018-01-03] MEDS: DOXYCYCLINE 100MG TABLET PO SCH ×2 (03:26→16:59)
[2018-01-03] MEDS: methylPREDNISolone SOD SUCC 125 MG/2 ML IVPush SCH ×4 (04:58→23:44)
[2018-01-03 05:24] LABS: MEAN CORPUSCULAR HEMOGLOBIN 26.4 pg (27.5-34.5); MEAN CORPUSCULAR HGB CONC 32.1 g/dL (33.2-36.2); MEAN CORPUSCULAR VOLUME 82.3 fL (81-97); MEAN PLATELET VOLUME 10.7 fL (7.4-10.4); PLATELET COUNT 192 x10^3/uL (130-400); RED BLOOD COUNT 4.24 x10^6/uL (4.38-5.82); RED CELL DISTRIBUTION WIDTH 15.9 % (9.4-14.8)
[2018-01-03 05:25] LABS: CHLORIDE 97 mmol/L (98-107)
[2018-01-03 05:38] LABS: ANION GAP 6 mmol/L (5-15); CALCIUM 8.4 mg/dL (8.5-10.1)
[2018-01-03] MEDS: CEFTRIAXONE PMX 2GM/50ML 50 ML IV SCH (05:49)
[2018-01-03] MEDS: DILTIAZEM 90 MG TABLET PO SCH (05:52)
[2018-01-03] MEDS: METOPROLOL TARTRATE 25 MG TABLET PO SCH (05:53)
[2018-01-03 06:06] LABS: BASOPHILS % (AUTO) 0 % (0-1); EOSINOPHILS % (AUTO) 0 % (1-7); LYMPHOCYTES # (AUTO) 0.41 x10^3/uL (1-3.4); LYMPHOCYTES % (AUTO) 3 % (22-44); MD SCAN; MONOCYTES # (AUTO) 0.23 x10^3/uL (0.2-0.8); MONOCYTES % (AUTO) 2 % (2-9); NEUTROPHILS # (AUTO) 11.26 x10^3/uL (1.8-6.8); NEUTROPHILS % (AUTO) 95 % (42-75)
[2018-01-03 06:50] VITALS: BP 128/84
[2018-01-03] MEDS: ALBUTEROL/IPRATROPIUM 2.5MG/0.5MG, 3 ML NPPB SCH (07:00)
[2018-01-03] MEDS ORDERED: ALBUTEROL/IPRATROPIUM 2.5MG/0.5MG, 3 ML NPPB PRN (08:00)
[2018-01-03] MEDS: ZIPRASIDONE 20MG CAPSULE PO SCH (09:41)
[2018-01-03] MEDS: INSULIN GLARGINE 100 UNITS/ML, PEN SQ-INSULIN SCH ×2 (09:41→21:07)
[2018-01-03] MEDS: FAMOTIDINE 20 MG TABLET PO SCH ×2 (09:42→21:03)
[2018-01-03] MEDS: INSULIN LISPRO 100 UNITS/ML, PEN SQ-INSULIN SCH ×4 (09:42→21:05)
[2018-01-03] MEDS: CYCLOBENZAPRINE 10 MG TABLET PO SCH ×3 (09:42→21:03)
[2018-01-03] MEDS: ASPIRIN 81 MG TABLET CHEW PO SCH (09:43)
[2018-01-03] MEDS: FUROSEMIDE 40 MG TABLET PO SCH ×2 (09:43→21:03)
[2018-01-03] MEDS: FERROUS SULFATE 325 MG TABLET PO SCH (09:43)
[2018-01-03] MEDS: AMLODIPINE 5 MG TABLET PO SCH (09:43)
[2018-01-03] MEDS: DILTIAZEM 30 MG TABLET PO SCH ×3 (12:50→21:04)
[2018-01-03] MEDS: APIXABAN 5 MG TABLET PO SCH ×2 (12:53→21:03)
[2018-01-03 13:30] VITALS: BP 138/95
[2018-01-03] MEDS: FLUTICASONE/VILANTEROL 200-25MCG/INH INH SCH (17:03)
[2018-01-03 19:19] VITALS: BP 132/91
[2018-01-03] MEDS: ATORVASTATIN 40 MG TABLET PO SCH (21:03)
[2018-01-04 02:51] VITALS: BP 147/97
[2018-01-04] MEDS: DOXYCYCLINE 100MG TABLET PO SCH ×2 (05:09→16:47)
[2018-01-04] MEDS: methylPREDNISolone SOD SUCC 125 MG/2 ML IVPush SCH ×4 (05:09→23:25)
[2018-01-04] MEDS: CEFTRIAXONE PMX 2GM/50ML 50 ML IV SCH (05:09)
[2018-01-04] MEDS: DILTIAZEM 30 MG TABLET PO SCH ×5 (05:11→20:55)
[2018-01-04 07:00] VITALS: BP 133/80
[2018-01-04] MEDS: INSULIN GLARGINE 100 UNITS/ML, PEN SQ-INSULIN SCH ×2 (09:17→20:56)
[2018-01-04] MEDS: APIXABAN 5 MG TABLET PO SCH ×2 (09:18→20:55)
[2018-01-04] MEDS: FERROUS SULFATE 325 MG TABLET PO SCH (09:18)
[2018-01-04] MEDS: FUROSEMIDE 40 MG TABLET PO SCH ×2 (09:18→20:56)
[2018-01-04] MEDS: ZIPRASIDONE 20MG CAPSULE PO SCH (09:18)
[2018-01-04] MEDS: FAMOTIDINE 20 MG TABLET PO SCH ×2 (09:19→20:55)
[2018-01-04] MEDS: AMLODIPINE 5 MG TABLET PO SCH (09:19)
[2018-01-04] MEDS: CYCLOBENZAPRINE 10 MG TABLET PO SCH ×3 (09:19→20:55)
[2018-01-04] MEDS: ASPIRIN 81 MG TABLET CHEW PO SCH (09:19)
[2018-01-04 12:05] VITALS: BP 100/65
[2018-01-04] MEDS: INSULIN LISPRO 100 UNITS/ML, PEN SQ-INSULIN SCH ×3 (13:22→20:57)
[2018-01-04] MEDS: FLUTICASONE/VILANTEROL 200-25MCG/INH INH SCH (16:48)
[2018-01-04 19:04] VITALS: BP 138/84
[2018-01-04] MEDS: ATORVASTATIN 40 MG TABLET PO SCH (20:56)
[2018-01-05 00:51] VITALS: BP 124/78
[2018-01-05 04:57] VITALS: BP 148/88
[2018-01-05] MEDS: CEFTRIAXONE PMX 2GM/50ML 50 ML IV SCH (04:58)
[2018-01-05] MEDS: methylPREDNISolone SOD SUCC 125 MG/2 ML IVPush SCH ×2 (04:58→10:35)
[2018-01-05] MEDS: DOXYCYCLINE 100MG TABLET PO SCH (04:58)
[2018-01-05] MEDS: DILTIAZEM 30 MG TABLET PO SCH ×2 (04:58→10:35)
[2018-01-05 05:22] LABS: CALCIUM 8.5 mg/dL (8.5-10.1); CHLORIDE 97 mmol/L (98-107)
[2018-01-05 05:26] LABS: ANION GAP 6 mmol/L (5-15); CREATININE 1.09 mg/dL (0.7-1.3)
[2018-01-05 07:05] VITALS: BP 141/90
[2018-01-05] MEDS: CYCLOBENZAPRINE 10 MG TABLET PO SCH (07:57)
[2018-01-05] MEDS: FUROSEMIDE 40 MG TABLET PO SCH (07:57)
[2018-01-05] MEDS: APIXABAN 5 MG TABLET PO SCH (07:57)
[2018-01-05] MEDS: FAMOTIDINE 20 MG TABLET PO SCH (07:57)
[2018-01-05] MEDS: ASPIRIN 81 MG TABLET CHEW PO SCH (07:57)
[2018-01-05] MEDS: AMLODIPINE 5 MG TABLET PO SCH (07:57)
[2018-01-05] MEDS: CHOLECALCIFEROL 1,000 UNIT TABLET PO SCH (07:57)
[2018-01-05] MEDS: ZIPRASIDONE 20MG CAPSULE PO SCH (07:57)
[2018-01-05] MEDS: INSULIN LISPRO 100 UNITS/ML, PEN SQ-INSULIN SCH ×2 (07:58→10:36)
[2018-01-05] MEDS: INSULIN GLARGINE 100 UNITS/ML, PEN SQ-INSULIN SCH (07:58)
[2018-01-05] MEDS: FERROUS SULFATE 325 MG TABLET PO SCH (07:59)
[2018-01-05] MEDS ORDERED: METOPROLOL TARTRATE 25 MG TABLET PO SCH (10:30)
[2018-01-05] MEDS: OXYcodone IR 5MG TABLET PO PRN (10:36)
[2018-01-05] MEDS ORDERED: DOCU-131 PO (10:37)
[2018-01-05] MEDS ORDERED: DILT240C80 PO (10:37)
[2018-01-05] MEDS ORDERED: CEFD300C37 PO (10:37)
[2018-01-05] MEDS ORDERED: DOXY100T PO (10:37)
[2018-01-05] MEDS ORDERED: FLUT1DIS3 INH (10:37)
[2018-01-05] MEDS ORDERED: PRED5TAB PO (10:37)
[2018-01-05] MEDS ORDERED: APIX5TAB PO (10:37)
[2018-01-05] MEDS ORDERED: METO25TA35 PO (10:37)
[2018-01-05] MEDS ORDERED: LOSA50TA6 PO (11:08)
[2018-01-05 13:00] VITALS: BP 150/88
== END 2018-01-05 15:48 | disposition home health service (06) | DRG 291 ==
LOC: ED 23:59 → EDIP 12-30 01:09 → 5SO 12-30 02:32 → 4EST 12-30 03:30 → DCLOUNGE 01-05 15:10
PROVIDERS: ADMIT Internal Medicine; ATTEND Internal Medicine
DX: I11.0 Hypertensive heart disease with heart failure (principal); J18.9 Pneumonia, unspecified organism; J96.20 Acute and chronic respiratory failure, unspecified whether with hypoxia or hypercapnia; E43 Unspecified severe protein-calorie malnutrition; J44.1 Chronic obstructive pulmonary disease with (acute) exacerbation; I48.4 Atypical atrial flutter; J44.0 Chronic obstructive pulmonary disease with (acute) lower respiratory infection; D68.59 Other primary thrombophilia; Z68.43 Body mass index [BMI] 50.0-59.9, adult; E66.2 Morbid (severe) obesity with alveolar hypoventilation; I50.33 Acute on chronic diastolic (congestive) heart failure; E78.00 Pure hypercholesterolemia, unspecified; E11.9 Type 2 diabetes mellitus without complications; E78.5 Hyperlipidemia, unspecified; F29 Unspecified psychosis not due to a substance or known physiological condition; I45.9 Conduction disorder, unspecified; F31.9 Bipolar disorder, unspecified; I48.91 Unspecified atrial fibrillation; I87.2 Venous insufficiency (chronic) (peripheral); I08.1 Rheumatic disorders of both mitral and tricuspid valves; D64.9 Anemia, unspecified; G43.909 Migraine, unspecified, not intractable, without status migrainosus; Z79.01 Long term (current) use of anticoagulants; Z83.3 Family history of diabetes mellitus; Z87.891 Personal history of nicotine dependence; Z91.19 Patient's noncompliance with other medical treatment and regimen; Z99.81 Dependence on supplemental oxygen
CPT/HCPCS: 36415; 36600; 71045; 80048; 80053; 80061; 81001; 82803; 82962; 83036; 83735; 83880; 84439; 84443; 84484; 85025; 85610; 93005; 93970; 94640; 94660; 99285; C8929; J0696; J1650; J1940; J7620; J1815; J2930

== ENCOUNTER 2018-05-03 02:13 | Inpatient (IN) | payer MEDICARE ==
[~2018-05-03] VITALS: Ht 170.2 cm; Wt 133.1 kg
[~2018-05-03 02:13] MED LIST changes: -AMLO5TAB2 PO; +AMLO5TAB7 PO; +APIX5TAB PO; +CEFD300C37 PO; +DILT240C80 PO; +DOCU-131 PO; +DOXY100T PO; +FLUT1DIS3 INH; +FLUTICASONE PROP NAS; -GEMF600T3 PO; +GEMF600T4 PO; -IPRA3AMP IPPB; +IPRA3AMP30 IPPB; +LOSA50TA7 PO; +METF500T17 PO; +PRED5TAB PO; -SPIR25TA3 PO; +SPIR25TA5 PO
[2018-05-03] MEDS ORDERED: SODIUM CHLORIDE 0.9% 1,000ML IVBOLUS ONE (02:30)
[2018-05-03 02:52] LABS: BASOPHILS # (AUTO) 0.04 x10^3/uL (0-0.1); BASOPHILS % (AUTO) 1 % (0-1); EOSINOPHILS # (AUTO) 0.47 x10^3/uL (0-0.4); EOSINOPHILS % (AUTO) 7 % (1-7); LYMPHOCYTES # (AUTO) 1.23 x10^3/uL (1-3.4); LYMPHOCYTES % (AUTO) 17 % (22-44); MD NO; MEAN CORPUSCULAR HEMOGLOBIN 26.7 pg (27.5-34.5); MEAN CORPUSCULAR HGB CONC 32.4 g/dL (33.2-36.2); MEAN CORPUSCULAR VOLUME 82.2 fL (81-97); MEAN PLATELET VOLUME 10.5 fL (7.4-10.4); MONOCYTES # (AUTO) 0.98 x10^3/uL (0.2-0.8); MONOCYTES % (AUTO) 14 % (2-9); NEUTROPHILS # (AUTO) 4.38 x10^3/uL (1.8-6.8); NEUTROPHILS % (AUTO) 62 % (42-75); PLATELET COUNT 163 x10^3/uL (130-400); RED BLOOD COUNT 4.29 x10^6/uL (4.38-5.82); RED CELL DISTRIBUTION WIDTH 14.7 % (9.4-14.8)
[2018-05-03 03:04] LABS: ALANINE AMINOTRANSFERASE 23 U/L (12-78); ALBUMIN 2.8 g/dL (3.4-5.0); ANION GAP 5 mmol/L (5-15); CALCIUM 8.4 mg/dL (8.5-10.1); CHLORIDE 100 mmol/L (98-107); CREATININE 1.53 mg/dL (0.7-1.3)
[2018-05-03 03:08] LABS: ALKALINE PHOSPHATASE 114 U/L (45-117); BILIRUBIN,TOTAL 0.4 mg/dL (0.2-1.0); TOTAL PROTEIN 6.5 g/dL (6.4-8.2)
[2018-05-03] MEDS ORDERED: OMNIPAQUE 350 MG/ML, 100ML BOTTLE ONE (03:33)
[2018-05-03] MEDS ORDERED: ACETAMINOPHEN 325 MG TABLET PO PRN (05:30)
[2018-05-03] MEDS ORDERED: HEPARIN 5,000 UNITS/ML, 1ML SQ SCH (05:30)
[2018-05-03] MEDS ORDERED: ONDANSETRON 2MG/ML, 2ML IV PRN (05:30)
[2018-05-03 05:46] VITALS: BP 163/94
[2018-05-03] MEDS ORDERED: HEPARIN MC SCH (06:00)
[2018-05-03] MEDS ORDERED: CARVEDILOL 3.125 MG TABLET PO SCH (06:00)
[2018-05-03] MEDS: FUROSEMIDE 40 MG/4 ML IVPush SCH ×2 (06:00→17:17)
[2018-05-03] MEDS ORDERED: DOCUSATE 100 MG CAPSULE PO PRN (06:00)
[2018-05-03] MEDS ORDERED: APIXABAN MC SCH (06:00)
[2018-05-03] MEDS: ASPIRIN 81 MG TABLET EC PO SCH (06:02)
[2018-05-03 06:24] LABS: TROPONIN I 0.024 ng/mL (0.000-0.045)
[2018-05-03 06:42] VITALS: BP 144/92
[2018-05-03] MEDS: APIXABAN 5 MG TABLET PO SCH ×2 (08:07→21:17)
[2018-05-03] MEDS: INSULIN LISPRO 100 UNITS/ML, PEN SQ-INSULIN SCH ×4 (08:42→21:21)
[2018-05-03] MEDS ORDERED: TEMPLATE NON-FORMULARY MED. (Aspirin** (Aspir 81**) 81 MG) PO SCH (09:00)
[2018-05-03] MEDS ORDERED: METOPROLOL TARTRATE 25 MG TABLET PO SCH (09:00)
[2018-05-03 11:52] LABS: TROPONIN I 0.031 ng/mL (0.000-0.045)
[2018-05-03 15:57] VITALS: BP 154/101
[2018-05-03] MEDS: CARVEDILOL 12.5 MG TABLET PO SCH (17:17)
[2018-05-03] MEDS ORDERED: CARVEDILOL 6.25 MG TABLET PO SCH (18:00)
[2018-05-03 19:06] VITALS: BP 113/66
[2018-05-03] MEDS ORDERED: ATORVASTATIN 20 MG TABLET PO SCH (21:00)
[2018-05-03] MEDS: ATORVASTATIN 40 MG TABLET PO SCH (21:17)
[2018-05-04 01:18] VITALS: BP 145/90
[2018-05-04] MEDS: ACETAMINOPHEN 650 MG/20.3 ML UDC PO PRN ×2 (02:48→11:49)
[2018-05-04] MEDS: CARVEDILOL 12.5 MG TABLET PO SCH (05:57)
[2018-05-04] MEDS: FUROSEMIDE 40 MG/4 ML IVPush SCH (05:57)
[2018-05-04] MEDS: ASPIRIN 81 MG TABLET EC PO SCH (05:57)
[2018-05-04 07:26] VITALS: BP 146/87
[2018-05-04] MEDS: INSULIN LISPRO 100 UNITS/ML, PEN SQ-INSULIN SCH ×4 (08:09→20:53)
[2018-05-04] MEDS: APIXABAN 5 MG TABLET PO SCH ×2 (11:24→20:48)
[2018-05-04] MEDS: CHOLECALCIFEROL 5,000u TAB PO SCH (11:24)
[2018-05-04 12:55] LABS: BASOPHILS # (AUTO) 0.03 x10^3/uL (0-0.1); BASOPHILS % (AUTO) 0 % (0-1); EOSINOPHILS # (AUTO) 0.33 x10^3/uL (0-0.4); EOSINOPHILS % (AUTO) 4 % (1-7); LYMPHOCYTES # (AUTO) 1.49 x10^3/uL (1-3.4); LYMPHOCYTES % (AUTO) 17 % (22-44); MD NO; MEAN CORPUSCULAR HEMOGLOBIN 26.9 pg (27.5-34.5); MEAN CORPUSCULAR HGB CONC 32.8 g/dL (33.2-36.2); MEAN CORPUSCULAR VOLUME 82.1 fL (81-97); MEAN PLATELET VOLUME 10.8 fL (7.4-10.4); MONOCYTES # (AUTO) 0.72 x10^3/uL (0.2-0.8); MONOCYTES % (AUTO) 8 % (2-9); NEUTROPHILS % (AUTO) 71 % (42-75); PLATELET COUNT 183 x10^3/uL (130-400); RED BLOOD COUNT 4.24 x10^6/uL (4.38-5.82); RED CELL DISTRIBUTION WIDTH 14.6 % (9.4-14.8)
[2018-05-04 13:02] LABS: ANION GAP 7 mmol/L (5-15); CALCIUM 8.5 mg/dL (8.5-10.1); CHLORIDE 98 mmol/L (98-107); CREATININE 1.28 mg/dL (0.7-1.3)
[2018-05-04 13:29] VITALS: BP 142/88
[2018-05-04] MEDS: IRON SUCROSE COMPLEX 100MG/5ML IV SCH (13:52)
[2018-05-04] MEDS ORDERED: CARVEDILOL 25 MG TABLET PO SCH ×2 (18:00)
[2018-05-04 18:56] VITALS: BP 124/68
[2018-05-04] MEDS: FUROSEMIDE 40 MG TABLET PO SCH (20:49)
[2018-05-04] MEDS: ATORVASTATIN 40 MG TABLET PO SCH (20:49)
[2018-05-04] MEDS ORDERED: (Fluticasone/Salmeterol** (Advair 250-50 Diskus**) 1 PUFF) INH SCH (21:00)
[2018-05-05 01:26] VITALS: BP 123/77
[2018-05-05] MEDS: ASPIRIN 81 MG TABLET EC PO SCH (05:19)
[2018-05-05] MEDS: INSULIN LISPRO 100 UNITS/ML, PEN SQ-INSULIN SCH ×3 (07:00→21:40)
[2018-05-05 07:27] VITALS: BP 159/85
[2018-05-05] MEDS: APIXABAN 5 MG TABLET PO SCH ×2 (10:08→21:37)
[2018-05-05] MEDS: FAMOTIDINE 20 MG TABLET PO SCH (10:08)
[2018-05-05] MEDS: LOSARTAN 50MG TABLET PO SCH (10:08)
[2018-05-05] MEDS: FUROSEMIDE 40 MG TABLET PO SCH ×2 (10:08→21:37)
[2018-05-05] MEDS: DILTIAZEM 240 MG CAP.ER.24H PO SCH (10:08)
[2018-05-05] MEDS: IRON SUCROSE COMPLEX 100MG/5ML IV SCH (10:09)
[2018-05-05] MEDS: ZIPRASIDONE 20MG CAPSULE PO SCH (10:09)
[2018-05-05] MEDS ORDERED: REGADENOSON 0.4 MG/5 ML SYRINGE ONE (10:40)
[2018-05-05 12:04] VITALS: BP 138/87
[2018-05-05 18:53] VITALS: BP 115/66
[2018-05-05] MEDS: BUDESONIDE 0.5 MG/2 ML INHA NPPB SCH (21:00)
[2018-05-05] MEDS: ALBUTEROL SULFATE 2.5 MG/3 ML NPPB SCH (21:00)
[2018-05-05] MEDS: ATORVASTATIN 40 MG TABLET PO SCH (21:37)
[2018-05-06 01:30] VITALS: BP 110/69
[2018-05-06] MEDS: ALBUTEROL SULFATE 2.5 MG/3 ML NPPB SCH ×4 (06:00→19:07)
[2018-05-06] MEDS: ASPIRIN 81 MG TABLET EC PO SCH (06:10)
[2018-05-06 07:17] VITALS: BP 143/95
[2018-05-06] MEDS: INSULIN LISPRO 100 UNITS/ML, PEN SQ-INSULIN SCH ×4 (08:12→20:39)
[2018-05-06] MEDS: BUDESONIDE 0.5 MG/2 ML INHA NPPB SCH ×2 (09:00→19:08)
[2018-05-06] MEDS: IRON SUCROSE COMPLEX 100MG/5ML IV SCH (09:50)
[2018-05-06] MEDS: FUROSEMIDE 40 MG TABLET PO SCH ×2 (09:50→20:39)
[2018-05-06] MEDS: LOSARTAN 50MG TABLET PO SCH (09:50)
[2018-05-06] MEDS: APIXABAN 5 MG TABLET PO SCH ×2 (09:50→20:27)
[2018-05-06] MEDS: ZIPRASIDONE 20MG CAPSULE PO SCH (09:51)
[2018-05-06] MEDS: FAMOTIDINE 20 MG TABLET PO SCH (09:51)
[2018-05-06] MEDS: DILTIAZEM 240 MG CAP.ER.24H PO SCH (09:56)
[2018-05-06 12:26] VITALS: BP 133/85
[2018-05-06 19:04] VITALS: BP 136/86
[2018-05-06] MEDS: ATORVASTATIN 40 MG TABLET PO SCH (20:27)
[2018-05-06] MEDS: ACETAMINOPHEN 650 MG/20.3 ML UDC PO PRN (22:48)
[2018-05-07 00:08] VITALS: BP 128/65
[2018-05-07] MEDS: ASPIRIN 81 MG TABLET EC PO SCH (05:11)
[2018-05-07] MEDS: ALBUTEROL SULFATE 2.5 MG/3 ML NPPB SCH ×4 (06:00→19:34)
[2018-05-07 07:51] VITALS: BP 142/97
[2018-05-07] MEDS: DILTIAZEM 240 MG CAP.ER.24H PO SCH (08:13)
[2018-05-07] MEDS: FAMOTIDINE 20 MG TABLET PO SCH (08:13)
[2018-05-07] MEDS: FUROSEMIDE 40 MG TABLET PO SCH ×2 (08:13→21:39)
[2018-05-07] MEDS: LOSARTAN 50MG TABLET PO SCH (08:14)
[2018-05-07] MEDS: APIXABAN 5 MG TABLET PO SCH ×2 (08:14→21:39)
[2018-05-07] MEDS: ZIPRASIDONE 20MG CAPSULE PO SCH (08:14)
[2018-05-07] MEDS: INSULIN LISPRO 100 UNITS/ML, PEN SQ-INSULIN SCH ×4 (08:17→21:44)
[2018-05-07] MEDS: BUDESONIDE 0.5 MG/2 ML INHA NPPB SCH ×2 (09:00→19:34)
[2018-05-07 14:30] VITALS: BP 153/89
[2018-05-07] MEDS ORDERED: METO25TA91 PO (15:04)
[2018-05-07 18:53] VITALS: BP 122/77
[2018-05-07] MEDS: ATORVASTATIN 40 MG TABLET PO SCH (21:39)
[2018-05-08] VITALS: BP 133/72
[2018-05-08] MEDS: ASPIRIN 81 MG TABLET EC PO SCH (05:11)
[2018-05-08] MEDS: BUDESONIDE 0.5 MG/2 ML INHA NPPB SCH (07:10)
[2018-05-08] MEDS: ALBUTEROL SULFATE 2.5 MG/3 ML NPPB SCH ×3 (07:10→15:20)
[2018-05-08 07:21] VITALS: BP 154/94
[2018-05-08] MEDS: INSULIN LISPRO 100 UNITS/ML, PEN SQ-INSULIN SCH ×3 (07:41→16:36)
[2018-05-08] MEDS: FAMOTIDINE 20 MG TABLET PO SCH (07:42)
[2018-05-08] MEDS: ZIPRASIDONE 20MG CAPSULE PO SCH (07:42)
[2018-05-08] MEDS: FUROSEMIDE 40 MG TABLET PO SCH (07:42)
[2018-05-08] MEDS: CHOLECALCIFEROL 5,000u TAB PO SCH (07:42)
[2018-05-08] MEDS: LOSARTAN 50MG TABLET PO SCH (07:42)
[2018-05-08] MEDS: APIXABAN 5 MG TABLET PO SCH (07:42)
[2018-05-08] MEDS: DILTIAZEM 240 MG CAP.ER.24H PO SCH (07:42)
[2018-05-08] MEDS: ACETAMINOPHEN 650 MG/20.3 ML UDC PO PRN (07:52)
[2018-05-08 14:09] VITALS: BP 154/81
== END 2018-05-08 18:08 | disposition home or self-care (01) | DRG 682 ==
LOC: ED 04:37 → EDIP 04:45 → 5SO 05:33 → 3NW 05-07 18:11
PROVIDERS: ADMIT Internal Medicine; ATTEND Hospitalist
DX: N17.9 Acute kidney failure, unspecified (principal); J96.21 Acute and chronic respiratory failure with hypoxia; I50.43 Acute on chronic combined systolic (congestive) and diastolic (congestive) heart failure; I16.9 Hypertensive crisis, unspecified; I48.92 Unspecified atrial flutter; Z68.42 Body mass index [BMI] 45.0-49.9, adult; I11.0 Hypertensive heart disease with heart failure; D63.8 Anemia in other chronic diseases classified elsewhere; E11.65 Type 2 diabetes mellitus with hyperglycemia; E66.01 Morbid (severe) obesity due to excess calories; E78.00 Pure hypercholesterolemia, unspecified; F29 Unspecified psychosis not due to a substance or known physiological condition; F31.9 Bipolar disorder, unspecified; G47.33 Obstructive sleep apnea (adult) (pediatric); I27.20 Pulmonary hypertension, unspecified; I48.2 Chronic atrial fibrillation; I87.8 Other specified disorders of veins; J44.9 Chronic obstructive pulmonary disease, unspecified; Z79.01 Long term (current) use of anticoagulants; Z83.3 Family history of diabetes mellitus; Z87.891 Personal history of nicotine dependence; Z91.19 Patient's noncompliance with other medical treatment and regimen; Z99.81 Dependence on supplemental oxygen; Z79.899 Other long term (current) drug therapy; Z79.82 Long term (current) use of aspirin
CPT/HCPCS: 36415; 71275; 78452; 80048; 80053; 82728; 82962; 83540; 83550; 83880; 84484; 85025; 93005; 93017; 93306; 93970; 94640; 96360; 99291; G0378; J1756; J1940; J2785; J7613; J7626; Q9967; 92523-GN; A9502; C9898; J1815; J7030

== ENCOUNTER 2018-07-20 23:00 | Inpatient (IN) | payer MEDICARE, OTHER ==
[~2018-07-20] VITALS: Ht 170.2 cm; Wt 145.2 kg
[~2018-07-20 23:00] MED LIST changes: +AMLO-150 PO; -AMLO5TAB7 PO; -GEMF600T4 PO; +GEMF600T8 PO; +LOSA50TA14 PO; -LOSA50TA7 PO; +METO25TA91 PO
[2018-07-20] MEDS ORDERED: GABAPENTIN PO (23:23)
--- NOTE | 2018-07-20 23:27 | NUR ---
PT BIB [facility]. PT REPORTS NUMBNESS/TINGLING IN BILAT LOWER EXT FOR A FEW YEARS. PT IN HOSPITAL GOWN, CXR DONE. LABS HAVE BEEN DRAWN. PT ON VITALS MONITORS. PT STATED HIS MAIN CONCERN IS HIS BILAT LOWER EXT. BILAT BEDRAILS UP. CALL LIGHT WITHIN REACH.
[2018-07-20] MEDS ORDERED: SODIUM CHLORIDE FLUSH 10ML SYR IVF ONE (23:30)
[2018-07-20 23:31] LABS: BASOPHILS # (AUTO) 0.04 x10^3/uL (0-0.1); BASOPHILS % (AUTO) 1 % (0-1); EOSINOPHILS # (AUTO) 0.28 x10^3/uL (0-0.4); EOSINOPHILS % (AUTO) 3 % (1-7); LYMPHOCYTES # (AUTO) 1.69 x10^3/uL (1-3.4); LYMPHOCYTES % (AUTO) 19 % (22-44); MD NO; MEAN CORPUSCULAR HEMOGLOBIN 26.7 pg (27.5-34.5); MEAN CORPUSCULAR HGB CONC 32.8 g/dL (33.2-36.2); MEAN CORPUSCULAR VOLUME 81.6 fL (81-97); MEAN PLATELET VOLUME 9.6 fL (7.4-10.4); MONOCYTES # (AUTO) 0.69 x10^3/uL (0.2-0.8); MONOCYTES % (AUTO) 8 % (2-9); NEUTROPHILS # (AUTO) 6.36 x10^3/uL (1.8-6.8); NEUTROPHILS % (AUTO) 70 % (42-75); PLATELET COUNT 215 x10^3/uL (130-400); RED CELL DISTRIBUTION WIDTH 16.9 % (9.4-14.8)
[2018-07-20 23:39] LABS: INTERNATIONAL NORMALIZED RATIO 1.31 (0.93-1.1); PROTHROMBIN TIME 13.7 Seconds (9.6-11.5)
[2018-07-20 23:41] LABS: ALANINE AMINOTRANSFERASE 36 U/L (12-78); ALBUMIN 2.8 g/dL (3.4-5.0); ANION GAP 7 mmol/L (5-15); CALCIUM 8.6 mg/dL (8.5-10.1); CHLORIDE 102 mmol/L (98-107); CREATININE 1.55 mg/dL (0.7-1.3)
[2018-07-20 23:45] LABS: ALKALINE PHOSPHATASE 109 U/L (45-117); BILIRUBIN,TOTAL 0.4 mg/dL (0.2-1.0); TOTAL PROTEIN 5.9 g/dL (6.4-8.2)
--- NOTE | 2018-07-20 23:48 | NUR ---
PT ABLE TO GIVE URINE SAMPLE. URINE SENT TO LAB.
[2018-07-20 23:58] LABS: MICROSCOPIC AUTO
[2018-07-20 23:59] LABS: CULTURE INDICATED? NO
--- NOTE | 2018-07-21 00:11 | NUR ---
PT TO US AFTER IV STARTED IN RIGHT ARM.
--- NOTE | 2018-07-21 01:11 | NUR ---
ALL PT RESULTS BACK. PT UP FOR RECHECK.
[2018-07-21] MEDS ORDERED: CEFTRIAXONE PMX 1GM/50ML 50 ML IV ONE (02:00)
[2018-07-21] MEDS ORDERED: SODIUM CHLORIDE FLUSH 10ML SYR IVF PRN (02:00)
--- NOTE | 2018-07-21 02:18 | NUR ---
REPORT TO BASSAM GALVEZ FOR ROOM 471
--- NOTE | 2018-07-21 02:19 | NUR ---
LAB IN DRAWNING BLOOD CX.
[2018-07-21] MEDS ORDERED: CEFTRIAXONE PMX 1GM/50ML 50 ML ONE (02:49)
[2018-07-21 03:21] LABS: HCT (SEDRATE) 34.3 % (39.2-51.8)
[2018-07-21] MEDS: INSULIN GLARGINE 100 UNITS/ML, PEN SQ-INSULIN SCH ×3 (03:30→21:21)
[2018-07-21] MEDS ORDERED: BISACODYL 10 MG SUPP PR PRN (03:30)
[2018-07-21] MEDS ORDERED: ACETAMINOPHEN 325 MG TABLET PO PRN (03:30)
[2018-07-21] MEDS ORDERED: HYDROcodone/APAP 5/325 TABLET PO PRN (03:30)
[2018-07-21] MEDS ORDERED: ENOXAPARIN 40 MG/0.4 ML SQ SCH (03:30)
[2018-07-21] MEDS: SODIUM CHLORIDE 0.9% 1,000 ML IV SCH ×2 (03:46→17:00)
[2018-07-21 03:50] VITALS: BP 136/83
[2018-07-21] MEDS ORDERED: ALBUTEROL/IPRATROPIUM 2.5MG/0.5MG, 3 ML NPPB PRN (04:30)
[2018-07-21] MEDS ORDERED: DICLOXACILLIN 500 MG CAPSULE PO SCH (06:00)
[2018-07-21] MEDS: DICLOXACILLIN 250 MG CAPSULE PO SCH ×4 (06:28→21:17)
[2018-07-21] MEDS: ASPIRIN 81 MG TABLET EC PO SCH (06:28)
[2018-07-21] MEDS: ALBUTEROL/IPRATROPIUM 2.5MG/0.5MG, 3 ML NPPB SCH ×4 (06:48→21:30)
[2018-07-21] MEDS ORDERED: ALBUTEROL/IPRATROPIUM 2.5MG/0.5MG, 3 ML NPPB SCH (07:00)
[2018-07-21 07:08] VITALS: BP 137/78
[2018-07-21 07:35] LABS: MICROSCOPIC AUTO
[2018-07-21 07:37] LABS: CULTURE INDICATED? NO
[2018-07-21] MEDS: LOSARTAN 50MG TABLET PO SCH (08:10)
[2018-07-21] MEDS: MAGNESIUM OXIDE 400 MG TABLET PO SCH (08:10)
[2018-07-21] MEDS: metFORMIN 500 MG TABLET PO SCH ×2 (08:10→21:19)
[2018-07-21] MEDS: METOPROLOL SUCCINATE 25 MG TAB.ER.24H PO SCH (08:11)
[2018-07-21] MEDS: ZIPRASIDONE 20MG CAPSULE PO SCH (08:11)
[2018-07-21] MEDS: FERROUS SULFATE 325 MG TABLET PO SCH (08:12)
[2018-07-21] MEDS: APIXABAN 5 MG TABLET PO SCH ×2 (08:12→21:18)
[2018-07-21] MEDS: FUROSEMIDE 40 MG TABLET PO SCH ×2 (08:12→21:19)
[2018-07-21] MEDS: DILTIAZEM 240 MG CAP.ER.24H PO SCH (08:14)
[2018-07-21] MEDS: BUDESONIDE 0.5 MG/2 ML INHA NPPB SCH ×2 (09:00→21:30)
[2018-07-21] MEDS ORDERED: FLUTICASONE PROPIONATE 0.05% INH SCH (09:00)
[2018-07-21] MEDS: INSULIN LISPRO 100 UNITS/ML, PEN SQ-INSULIN SCH ×4 (09:34→21:20)
[2018-07-21 12:18] VITALS: BP 102/60
[2018-07-21] MEDS: FLUTICASONE NASAL SPRAY 16GM NAS SCH (15:10)
[2018-07-21 19:51] VITALS: BP 106/62
[2018-07-21] MEDS ORDERED: ATORVASTATIN 40 MG TABLET PO SCH (21:00)
[2018-07-22 02:32] VITALS: BP 165/75
[2018-07-22] MEDS ORDERED: CEFTRIAXONE PMX 1GM/50ML 50 ML IV SCH (03:00)
[2018-07-22] MEDS: ASPIRIN 81 MG TABLET EC PO SCH (06:15)
[2018-07-22] MEDS: SODIUM CHLORIDE 0.9% 1,000 ML IV SCH (06:15)
[2018-07-22] MEDS: DICLOXACILLIN 250 MG CAPSULE PO SCH ×3 (06:15→17:56)
[2018-07-22] MEDS: ALBUTEROL/IPRATROPIUM 2.5MG/0.5MG, 3 ML NPPB SCH ×3 (07:00→14:35)
[2018-07-22] MEDS: INSULIN LISPRO 100 UNITS/ML, PEN SQ-INSULIN SCH ×3 (07:37→16:59)
[2018-07-22 07:48] VITALS: BP 140/91
[2018-07-22] MEDS: FUROSEMIDE 40 MG TABLET PO SCH (09:36)
[2018-07-22] MEDS: ZIPRASIDONE 20MG CAPSULE PO SCH (09:37)
[2018-07-22] MEDS: LOSARTAN 50MG TABLET PO SCH (09:37)
[2018-07-22] MEDS: DILTIAZEM 240 MG CAP.ER.24H PO SCH (09:37)
[2018-07-22] MEDS: APIXABAN 5 MG TABLET PO SCH (09:38)
[2018-07-22] MEDS: metFORMIN 500 MG TABLET PO SCH (09:38)
[2018-07-22] MEDS: FERROUS SULFATE 325 MG TABLET PO SCH (09:38)
[2018-07-22] MEDS: MAGNESIUM OXIDE 400 MG TABLET PO SCH (09:38)
[2018-07-22] MEDS: FLUTICASONE NASAL SPRAY 16GM NAS SCH (09:38)
[2018-07-22] MEDS: INSULIN GLARGINE 100 UNITS/ML, PEN SQ-INSULIN SCH (09:39)
[2018-07-22] MEDS: METOPROLOL SUCCINATE 25 MG TAB.ER.24H PO SCH (09:42)
[2018-07-22] MEDS ORDERED: SULF1TAB24 PO (10:47)
[2018-07-22 11:40] VITALS: BP 178/106
[2018-07-22] MEDS: BUDESONIDE 0.5 MG/2 ML INHA NPPB SCH (11:40)
[2018-07-22 13:21] VITALS: BP 160/90
[2018-07-24] MEDS ORDERED: CHOLECALCIFEROL 5,000u TAB PO SCH (09:00)
== END 2018-07-22 19:14 | disposition home or self-care (01) | DRG 299 ==
LOC: ED 07-21 01:02 → EDIP 07-21 01:56 → 4NOR 07-21 02:29
PROVIDERS: ADMIT Internal Medicine; ATTEND Family Medicine
DX: I87.2 Venous insufficiency (chronic) (peripheral) (principal); R65.11 Systemic inflammatory response syndrome (SIRS) of non-infectious origin with acute organ dysfunction; E43 Unspecified severe protein-calorie malnutrition; L03.115 Cellulitis of right lower limb; N17.9 Acute kidney failure, unspecified; D68.69 Other thrombophilia; J96.10 Chronic respiratory failure, unspecified whether with hypoxia or hypercapnia; I13.0 Hypertensive heart and chronic kidney disease with heart failure and stage 1 through stage 4 chronic kidney disease, or unspecified chronic kidney disease; I50.32 Chronic diastolic (congestive) heart failure; Z68.43 Body mass index [BMI] 50.0-59.9, adult; L03.116 Cellulitis of left lower limb; Z99.81 Dependence on supplemental oxygen; N18.2 Chronic kidney disease, stage 2 (mild); E11.22 Type 2 diabetes mellitus with diabetic chronic kidney disease; E66.01 Morbid (severe) obesity due to excess calories; F29 Unspecified psychosis not due to a substance or known physiological condition; E78.00 Pure hypercholesterolemia, unspecified; E78.5 Hyperlipidemia, unspecified; F31.9 Bipolar disorder, unspecified; G47.33 Obstructive sleep apnea (adult) (pediatric); I48.91 Unspecified atrial fibrillation; J44.9 Chronic obstructive pulmonary disease, unspecified; Z79.01 Long term (current) use of anticoagulants; Z83.3 Family history of diabetes mellitus; Z91.19 Patient's noncompliance with other medical treatment and regimen; I87.8 Other specified disorders of veins
CPT/HCPCS: 36415; 71045; 80053; 81001; 82962; 83880; 85025; 85610; 85651; 85730; 87040; 93970; 94640; 99285; G0378; J0696; J7620; J7626; J1815; J7030

== ENCOUNTER 2018-07-30 18:44 | Emergency (ER) | payer MEDICARE, OTHER ==
[~2018-07-30] VITALS: Ht 170.2 cm; Wt 150.0 kg
[~2018-07-30 18:44] MED LIST changes: +GABAPENTIN PO; +SULF1TAB24 PO
[2018-07-30 18:50] VITALS: BP 135/71
--- NOTE | 2018-07-30 19:01 | NUR ---
BEDSIDE REPORT RECEIVED FROM LENNY MCDANIEL. ASSUMED CARE OF PT. DR. SOL AT BEDSIDE EVALUATING PT
--- NOTE | 2018-07-30 19:07 | NUR ---
REPORT TO RAUL GALVEZ
[2018-07-30] MEDS ORDERED: L.E.T SOLUTION TP ONE (19:14)
[2018-07-30 19:24] LABS: BASOPHILS # (AUTO) 0.07 x10^3/uL (0-0.1); BASOPHILS % (AUTO) 1 % (0-1); EOSINOPHILS % (AUTO) 2 % (1-7); LYMPHOCYTES # (AUTO) 1.52 x10^3/uL (1-3.4); LYMPHOCYTES % (AUTO) 15 % (22-44); MD NO; MEAN CORPUSCULAR HEMOGLOBIN 26.6 pg (27.5-34.5); MEAN CORPUSCULAR HGB CONC 32.2 g/dL (33.2-36.2); MEAN CORPUSCULAR VOLUME 82.8 fL (81-97); MEAN PLATELET VOLUME 9.9 fL (7.4-10.4); MONOCYTES # (AUTO) 0.78 x10^3/uL (0.2-0.8); MONOCYTES % (AUTO) 7 % (2-9); NEUTROPHILS # (AUTO) 7.96 x10^3/uL (1.8-6.8); NEUTROPHILS % (AUTO) 76 % (42-75); PLATELET COUNT 223 x10^3/uL (130-400); RED BLOOD COUNT 4.42 x10^6/uL (4.38-5.82); RED CELL DISTRIBUTION WIDTH 17.2 % (9.4-14.8)
--- NOTE | 2018-07-30 19:24 | NUR ---
L.E.T. SOLUTION APPLIED TO OPEN BLISTERS.
--- NOTE | 2018-07-30 19:30 | NUR ---
PT REQUESTING SANDWICH. PROVIDED WITH MEAL
[2018-07-30 19:34] LABS: ALBUMIN 3.1 g/dL (3.4-5.0); ANION GAP 3 mmol/L (5-15); CALCIUM 9.2 mg/dL (8.5-10.1); CHLORIDE 103 mmol/L (98-107); CREATININE 1.47 mg/dL (0.7-1.3)
--- NOTE | 2018-07-30 20:41 | NUR ---
PT ASSISTED TO WHEELCHAIR AND TAKEN TO RESTROOM. BACK TO BED WITHOUT DIFFICULTY
--- NOTE | 2018-07-30 21:18 | NUR ---
Patient/Caregiver given discharge instructions and they have confirmed that they understand the instructions. Patient ambulatory with steady gait.
== END 2018-07-30 21:22 | disposition home or self-care (01) ==
LOC: ED 20:21
DX: I83.11 Varicose veins of right lower extremity with inflammation (principal); I83.222 Varicose veins of left lower extremity with both ulcer of calf and inflammation; B37.2 Candidiasis of skin and nail; R23.8 Other skin changes; E66.01 Morbid (severe) obesity due to excess calories; J44.9 Chronic obstructive pulmonary disease, unspecified; I48.91 Unspecified atrial fibrillation; Z72.9 Problem related to lifestyle, unspecified; Z68.43 Body mass index [BMI] 50.0-59.9, adult
CPT/HCPCS: 36415; 71045; 80048; 82040; 83880; 85025; 99284

== ENCOUNTER 2018-09-21 19:01 | Inpatient (IN) | payer MEDICARE, MEDICAID, OTHER ==
[~2018-09-21] VITALS: Ht 170.2 cm; Wt 144.8 kg
[2018-09-21 19:44] LABS: BASOPHILS # (AUTO) 0.39 x10^3/uL (0-0.1); BASOPHILS % (AUTO) 3 % (0-1); EOSINOPHILS # (AUTO) 0.12 x10^3/uL (0-0.4); EOSINOPHILS % (AUTO) 1 % (1-7); LYMPHOCYTES # (AUTO) 1.45 x10^3/uL (1-3.4); LYMPHOCYTES % (AUTO) 10 % (22-44); MD NO; MEAN CORPUSCULAR HEMOGLOBIN 26.5 pg (27.5-34.5); MEAN CORPUSCULAR HGB CONC 32.3 g/dL (33.2-36.2); MEAN CORPUSCULAR VOLUME 82.2 fL (81-97); MEAN PLATELET VOLUME 10.1 fL (7.4-10.4); MONOCYTES # (AUTO) 0.92 x10^3/uL (0.2-0.8); MONOCYTES % (AUTO) 6 % (2-9); NEUTROPHILS # (AUTO) 12.21 x10^3/uL (1.8-6.8); NEUTROPHILS % (AUTO) 81 % (42-75); PLATELET COUNT 302 x10^3/uL (130-400); RED BLOOD COUNT 4.27 x10^6/uL (4.38-5.82); RED CELL DISTRIBUTION WIDTH 16.3 % (9.4-14.8)
[2018-09-21 19:49] LABS: ALANINE AMINOTRANSFERASE 293 U/L (12-78); ALBUMIN 2.8 g/dL (3.4-5.0); ANION GAP 12 mmol/L (5-15); CALCIUM 8.3 mg/dL (8.5-10.1); CHLORIDE 96 mmol/L (98-107); CREATININE 6.57 mg/dL (0.7-1.3)
--- NOTE | 2018-09-21 19:52 | NUR ---
TO ULTRASOUND VIA [facility]
[2018-09-21 19:53] LABS: ALKALINE PHOSPHATASE 168 U/L (45-117); BILIRUBIN,TOTAL 0.6 mg/dL (0.2-1.0)
[2018-09-21] MEDS ORDERED: CALCIUM GLUCONATE 4.6 MEQ in SODIUM CHLORIDE 0.9% 50 ML IV ONE (20:30)
[2018-09-21] MEDS ORDERED: SODIUM POLYSTYRENE SULFONATE ORAL SUSP PO ONE (20:30)
[2018-09-21] MEDS ORDERED: SODIUM BICARB 8.4%, 50ML SYRINGE IVPush ONE (20:30)
[2018-09-21] MEDS ORDERED: INSULIN REGULAR 100 UNITS/ML, 3ML VIAL SQ-INSULIN ONE (20:30)
[2018-09-21] MEDS ORDERED: DEXTROSE 50%, 50ML VIAL IVPush ONE (20:30)
[2018-09-21] MEDS ORDERED: SODIUM BICARBONATE 1 MEQ/ML, 50ML VIAL ONE (20:44)
[2018-09-21] MEDS ORDERED: FUROSEMIDE 40 MG/4 ML IV ONE (21:00)
--- NOTE | 2018-09-21 21:02 | NUR ---
REPORT TO JLUIS GALVEZ
[2018-09-21] MEDS ORDERED: INSULIN SINGLE DOSE, ER SQ-INSULIN ONE (21:03)
--- NOTE | 2018-09-21 21:15 | NUR ---
REPORT TO BIANCA GALVEZ
[2018-09-21] MEDS ORDERED: FUROSEMIDE 40 MG/4 ML ONE (21:32)
--- NOTE | 2018-09-21 21:32 | NUR ---
ALL ER MEDICATION ORDERS GIVEN.
--- NOTE | 2018-09-21 22:19 | NUR ---
FLEET SERVICE MANAGER AT BEDSIDE TAKE THE PATIENT UP TO FLOOR.
[2018-09-21] MEDS ORDERED: TEMPLATE NON-FORMULARY MED. (Insulin Glargine,Hum.rec.anlog** (Lantus**) 20 UNITS) SQ SCH (22:30)
[2018-09-21 22:50] VITALS: BP 113/72
[2018-09-21] MEDS ORDERED: ALBUTEROL/IPRATROPIUM 2.5MG/0.5MG, 3 ML NPPB SCH (23:00)
[2018-09-21] MEDS: INSULIN GLARGINE 100 UNITS/ML, PEN SQ-INSULIN SCH (23:55)
[2018-09-22] MEDS ORDERED: ALBUTEROL/IPRATROPIUM 2.5MG/0.5MG, 3 ML NPPB PRN (01:00)
[2018-09-22 01:22] LABS: MICROSCOPIC INDICATED
[2018-09-22 01:26] LABS: CULTURE INDICATED? NO
[2018-09-22 02:17] VITALS: BP 125/76
[2018-09-22 06:04] LABS: BASOPHILS # (AUTO) 0.23 x10^3/uL (0-0.1); BASOPHILS % (AUTO) 2 % (0-1); EOSINOPHILS # (AUTO) 0.13 x10^3/uL (0-0.4); EOSINOPHILS % (AUTO) 1 % (1-7); LYMPHOCYTES # (AUTO) 1.54 x10^3/uL (1-3.4); LYMPHOCYTES % (AUTO) 11 % (22-44); MD NO; MEAN CORPUSCULAR HEMOGLOBIN 26.9 pg (27.5-34.5); MEAN CORPUSCULAR HGB CONC 32.6 g/dL (33.2-36.2); MEAN CORPUSCULAR VOLUME 82.3 fL (81-97); MONOCYTES # (AUTO) 0.71 x10^3/uL (0.2-0.8); MONOCYTES % (AUTO) 5 % (2-9); NEUTROPHILS # (AUTO) 11.74 x10^3/uL (1.8-6.8); NEUTROPHILS % (AUTO) 82 % (42-75); PLATELET COUNT 323 x10^3/uL (130-400); RED BLOOD COUNT 4.29 x10^6/uL (4.38-5.82); RED CELL DISTRIBUTION WIDTH 15.8 % (9.4-14.8)
[2018-09-22 06:13] LABS: CHLORIDE 94 mmol/L (98-107)
[2018-09-22 06:22] LABS: ALBUMIN 2.9 g/dL (3.4-5.0); CALCIUM 8.3 mg/dL (8.5-10.1); CREATININE 6.48 mg/dL (0.7-1.3)
[2018-09-22 06:33] LABS: ANION GAP 8 mmol/L (5-15)
[2018-09-22] MEDS ORDERED: ALBUTEROL/IPRATROPIUM 2.5MG/0.5MG, 3 ML NPPB SCH (07:00)
[2018-09-22] MEDS ORDERED: ALBUTEROL/IPRATROPIUM 2.5MG/0.5MG, 3 ML IPPB SCH (07:00)
[2018-09-22] MEDS: INSULIN LISPRO 100 UNITS/ML, PEN SQ-INSULIN SCH ×4 (07:00→20:29)
[2018-09-22] MEDS: ALBUTEROL/IPRATROPIUM 2.5MG/0.5MG, 3 ML NPPB SCH ×2 (07:00→11:30)
[2018-09-22 07:30] VITALS: BP 126/69
[2018-09-22] MEDS: DILTIAZEM 240 MG CAP.ER.24H PO SCH (09:00)
[2018-09-22] MEDS: APIXABAN 5 MG TABLET PO SCH ×2 (09:44→20:16)
[2018-09-22] MEDS: ZIPRASIDONE 20MG CAPSULE PO SCH (09:44)
[2018-09-22] MEDS: FERROUS SULFATE 325 MG TABLET PO SCH (09:44)
[2018-09-22] MEDS: ASPIRIN 81 MG TABLET EC PO SCH (09:44)
[2018-09-22] MEDS: METOPROLOL SUCCINATE 25 MG TAB.ER.24H PO SCH (09:44)
[2018-09-22] MEDS ORDERED: SPIR25TA5 PO (10:17)
[2018-09-22] MEDS ORDERED: RANI150T4 PO (10:17)
[2018-09-22] MEDS ORDERED: RIVA20TA PO (10:17)
[2018-09-22] MEDS ORDERED: TRAZ50TA66 PO (10:17)
[2018-09-22] MEDS: INSULIN GLARGINE 100 UNITS/ML, PEN SQ-INSULIN SCH ×2 (11:55→23:30)
[2018-09-22 14:00] VITALS: BP 115/75
[2018-09-22 20:13] VITALS: BP 122/71
[2018-09-22] MEDS: ATORVASTATIN 40 MG TABLET PO SCH (20:16)
[2018-09-23 00:12] VITALS: BP 116/74
[2018-09-23 08:03] VITALS: BP 109/55
[2018-09-23] MEDS: INSULIN LISPRO 100 UNITS/ML, PEN SQ-INSULIN SCH ×4 (08:15→20:51)
[2018-09-23] MEDS: FERROUS SULFATE 325 MG TABLET PO SCH (08:17)
[2018-09-23] MEDS: APIXABAN 5 MG TABLET PO SCH ×2 (08:17→20:51)
[2018-09-23] MEDS: ASPIRIN 81 MG TABLET EC PO SCH (08:17)
[2018-09-23] MEDS: ZIPRASIDONE 20MG CAPSULE PO SCH (08:17)
[2018-09-23 08:25] LABS: BASOPHILS # (AUTO) 0.11 x10^3/uL (0-0.1); BASOPHILS % (AUTO) 1 % (0-1); EOSINOPHILS # (AUTO) 0.14 x10^3/uL (0-0.4); EOSINOPHILS % (AUTO) 1 % (1-7); LYMPHOCYTES # (AUTO) 0.96 x10^3/uL (1-3.4); LYMPHOCYTES % (AUTO) 8 % (22-44); MD NO; MEAN CORPUSCULAR HEMOGLOBIN 25.8 pg (27.5-34.5); MEAN CORPUSCULAR HGB CONC 31.6 g/dL (33.2-36.2); MEAN CORPUSCULAR VOLUME 81.7 fL (81-97); MEAN PLATELET VOLUME 9.9 fL (7.4-10.4); MONOCYTES # (AUTO) 0.81 x10^3/uL (0.2-0.8); MONOCYTES % (AUTO) 7 % (2-9); NEUTROPHILS % (AUTO) 83 % (42-75); PLATELET COUNT 238 x10^3/uL (130-400); RED BLOOD COUNT 3.98 x10^6/uL (4.38-5.82)
[2018-09-23 08:36] LABS: ANION GAP 9 mmol/L (5-15); CALCIUM 7.7 mg/dL (8.5-10.1); CHLORIDE 96 mmol/L (98-107); CREATININE 6.54 mg/dL (0.7-1.3)
[2018-09-23] MEDS ORDERED: FUROSEMIDE 40 MG/4 ML IV SCH (09:00)
[2018-09-23] MEDS: METOPROLOL SUCCINATE 25 MG TAB.ER.24H PO SCH (09:00)
[2018-09-23] MEDS: DILTIAZEM 240 MG CAP.ER.24H PO SCH (09:00)
[2018-09-23] MEDS: INSULIN GLARGINE 100 UNITS/ML, PEN SQ-INSULIN SCH ×2 (11:59→23:30)
[2018-09-23 13:04] VITALS: BP 152/74
[2018-09-23 20:00] VITALS: BP 139/66
[2018-09-23] MEDS: ATORVASTATIN 40 MG TABLET PO SCH (20:51)
[2018-09-24] MEDS ORDERED: ACETAMINOPHEN 325 MG TABLET ONE (00:19)
[2018-09-24] MEDS: ACETAMINOPHEN 325 MG TABLET PO PRN (00:23)
[2018-09-24 01:20] VITALS: BP 127/65
[2018-09-24] MEDS: INSULIN LISPRO 100 UNITS/ML, PEN SQ-INSULIN SCH ×4 (07:00→22:04)
[2018-09-24 07:48] VITALS: BP 160/85
[2018-09-24 08:58] LABS: BASOPHILS # (AUTO) 0.05 x10^3/uL (0-0.1); BASOPHILS % (AUTO) 0 % (0-1); EOSINOPHILS # (AUTO) 0.26 x10^3/uL (0-0.4); EOSINOPHILS % (AUTO) 2 % (1-7); LYMPHOCYTES % (AUTO) 10 % (22-44); MD NO; MEAN CORPUSCULAR HEMOGLOBIN 25.8 pg (27.5-34.5); MEAN CORPUSCULAR HGB CONC 31.8 g/dL (33.2-36.2); MEAN CORPUSCULAR VOLUME 81.3 fL (81-97); MEAN PLATELET VOLUME 9.7 fL (7.4-10.4); MONOCYTES # (AUTO) 0.88 x10^3/uL (0.2-0.8); MONOCYTES % (AUTO) 7 % (2-9); NEUTROPHILS % (AUTO) 81 % (42-75); PLATELET COUNT 268 x10^3/uL (130-400); RED BLOOD COUNT 3.94 x10^6/uL (4.38-5.82); RED CELL DISTRIBUTION WIDTH 15.8 % (9.4-14.8)
[2018-09-24 09:05] LABS: ANION GAP 7 mmol/L (5-15); CALCIUM 8.3 mg/dL (8.5-10.1); CHLORIDE 98 mmol/L (98-107); CREATININE 5.02 mg/dL (0.7-1.3)
[2018-09-24] MEDS: DILTIAZEM 240 MG CAP.ER.24H PO SCH (09:56)
[2018-09-24] MEDS: ASPIRIN 81 MG TABLET EC PO SCH (09:56)
[2018-09-24] MEDS: APIXABAN 5 MG TABLET PO SCH ×2 (09:57→22:02)
[2018-09-24] MEDS: FERROUS SULFATE 325 MG TABLET PO SCH (09:57)
[2018-09-24] MEDS: METOPROLOL SUCCINATE 25 MG TAB.ER.24H PO SCH (09:57)
[2018-09-24] MEDS: ZIPRASIDONE 20MG CAPSULE PO SCH (09:57)
[2018-09-24] MEDS: GABAPENTIN 100 MG CAPSULE PO PRN (09:58)
[2018-09-24 13:00] VITALS: BP 172/77
[2018-09-24 13:15] VITALS: BP 172/77
[2018-09-24 13:34] VITALS: BP 172/77
[2018-09-24] MEDS: INSULIN GLARGINE 100 UNITS/ML, PEN SQ-INSULIN SCH ×2 (13:34→22:04)
[2018-09-24] MEDS: hydrALAzine 20 MG/ML, 1ML IV PRN (13:35)
[2018-09-24 18:53] VITALS: BP 155/78
[2018-09-24] MEDS: ATORVASTATIN 40 MG TABLET PO SCH (22:02)
[2018-09-25 00:11] VITALS: BP_SYST 148; BP_SYST 75; BP_DIAS 38; BP_DIAS 71
[2018-09-25] MEDS: INSULIN LISPRO 100 UNITS/ML, PEN SQ-INSULIN SCH ×4 (07:00→21:46)
[2018-09-25 07:53] VITALS: BP 148/69
[2018-09-25 08:48] LABS: ANION GAP 5 mmol/L (5-15); CALCIUM 8.2 mg/dL (8.5-10.1); CHLORIDE 103 mmol/L (98-107); CREATININE 3.74 mg/dL (0.7-1.3)
[2018-09-25] MEDS: ASPIRIN 81 MG TABLET EC PO SCH (09:39)
[2018-09-25] MEDS: FERROUS SULFATE 325 MG TABLET PO SCH (09:39)
[2018-09-25] MEDS: APIXABAN 5 MG TABLET PO SCH ×2 (09:39→21:44)
[2018-09-25] MEDS: DILTIAZEM 240 MG CAP.ER.24H PO SCH (09:39)
[2018-09-25] MEDS: METOPROLOL SUCCINATE 25 MG TAB.ER.24H PO SCH (09:40)
[2018-09-25] MEDS: ZIPRASIDONE 20MG CAPSULE PO SCH (09:40)
[2018-09-25] MEDS: INSULIN GLARGINE 100 UNITS/ML, PEN SQ-INSULIN SCH ×2 (12:24→21:45)
[2018-09-25] MEDS: ACETAMINOPHEN 325 MG TABLET PO PRN (14:26)
[2018-09-25 16:11] VITALS: BP 168/84
[2018-09-25] MEDS: hydrALAzine 20 MG/ML, 1ML IV PRN (17:03)
[2018-09-25 18:49] VITALS: BP 174/92
[2018-09-25] MEDS: ATORVASTATIN 40 MG TABLET PO SCH (21:44)
[2018-09-26 00:16] VITALS: BP 156/79
[2018-09-26 05:30] LABS: ANION GAP 2 mmol/L (5-15); CALCIUM 8.4 mg/dL (8.5-10.1); CHLORIDE 106 mmol/L (98-107); CREATININE 2.79 mg/dL (0.7-1.3)
[2018-09-26] MEDS: INSULIN LISPRO 100 UNITS/ML, PEN SQ-INSULIN SCH ×4 (07:00→22:10)
[2018-09-26 08:01] VITALS: BP 173/74
[2018-09-26] MEDS: ZIPRASIDONE 20MG CAPSULE PO SCH (08:51)
[2018-09-26] MEDS: FERROUS SULFATE 325 MG TABLET PO SCH (08:51)
[2018-09-26] MEDS: DILTIAZEM 240 MG CAP.ER.24H PO SCH (08:51)
[2018-09-26] MEDS: METOPROLOL SUCCINATE 25 MG TAB.ER.24H PO SCH (08:51)
[2018-09-26] MEDS: APIXABAN 5 MG TABLET PO SCH ×2 (08:51→22:28)
[2018-09-26] MEDS: ASPIRIN 81 MG TABLET EC PO SCH (08:51)
[2018-09-26 09:46] LABS: BASOPHILS # (AUTO) 0.01 x10^3/uL (0-0.1); BASOPHILS % (AUTO) 0 % (0-1); EOSINOPHILS # (AUTO) 0.23 x10^3/uL (0-0.4); EOSINOPHILS % (AUTO) 2 % (1-7); LYMPHOCYTES # (AUTO) 0.89 x10^3/uL (1-3.4); LYMPHOCYTES % (AUTO) 7 % (22-44); MD NO; MEAN CORPUSCULAR HEMOGLOBIN 25.9 pg (27.5-34.5); MEAN CORPUSCULAR HGB CONC 31.2 g/dL (33.2-36.2); MEAN PLATELET VOLUME 9.9 fL (7.4-10.4); MONOCYTES # (AUTO) 0.64 x10^3/uL (0.2-0.8); MONOCYTES % (AUTO) 5 % (2-9); NEUTROPHILS # (AUTO) 10.29 x10^3/uL (1.8-6.8); NEUTROPHILS % (AUTO) 85 % (42-75); PLATELET COUNT 257 x10^3/uL (130-400); RED BLOOD COUNT 3.99 x10^6/uL (4.38-5.82); RED CELL DISTRIBUTION WIDTH 16.2 % (9.4-14.8)
[2018-09-26 10:41] VITALS: BP 153/80
[2018-09-26 12:15] VITALS: BP 172/83
[2018-09-26] MEDS: INSULIN GLARGINE 100 UNITS/ML, PEN SQ-INSULIN SCH ×2 (13:12→22:29)
[2018-09-26 20:17] VITALS: BP 177/83
[2018-09-26] MEDS: ATORVASTATIN 40 MG TABLET PO SCH (22:28)
[2018-09-27 02:28] VITALS: BP 149/77
[2018-09-27 06:04] LABS: ANION GAP 2 mmol/L (5-15); CALCIUM 8.5 mg/dL (8.5-10.1); CHLORIDE 107 mmol/L (98-107); CREATININE 2.22 mg/dL (0.7-1.3)
[2018-09-27 06:59] VITALS: BP 177/92
[2018-09-27] MEDS: INSULIN LISPRO 100 UNITS/ML, PEN SQ-INSULIN SCH ×4 (07:00→21:00)
[2018-09-27] MEDS: DILTIAZEM 240 MG CAP.ER.24H PO SCH (08:16)
[2018-09-27] MEDS: FERROUS SULFATE 325 MG TABLET PO SCH (08:17)
[2018-09-27] MEDS: APIXABAN 5 MG TABLET PO SCH ×2 (08:17→22:54)
[2018-09-27] MEDS: ZIPRASIDONE 20MG CAPSULE PO SCH (08:17)
[2018-09-27] MEDS: ASPIRIN 81 MG TABLET EC PO SCH (08:17)
[2018-09-27] MEDS: METOPROLOL SUCCINATE 25 MG TAB.ER.24H PO SCH (08:17)
[2018-09-27] MEDS: INSULIN GLARGINE 100 UNITS/ML, PEN SQ-INSULIN SCH ×2 (11:54→22:54)
[2018-09-27 13:22] VITALS: BP 182/65
[2018-09-27 14:29] VITALS: BP 159/76
[2018-09-27] MEDS: FUROSEMIDE 20 MG TABLET PO SCH (14:29)
[2018-09-27 18:37] VITALS: BP 168/73
[2018-09-27] MEDS: ATORVASTATIN 40 MG TABLET PO SCH (22:53)
[2018-09-28 03:34] VITALS: BP 169/82
[2018-09-28 07:07] VITALS: BP 165/77
[2018-09-28] MEDS: INSULIN LISPRO 100 UNITS/ML, PEN SQ-INSULIN SCH ×4 (08:27→20:53)
[2018-09-28] MEDS: APIXABAN 5 MG TABLET PO SCH ×2 (08:28→20:51)
[2018-09-28] MEDS: ZIPRASIDONE 20MG CAPSULE PO SCH (08:28)
[2018-09-28] MEDS: FUROSEMIDE 20 MG TABLET PO SCH (08:28)
[2018-09-28] MEDS: METOPROLOL SUCCINATE 25 MG TAB.ER.24H PO SCH (08:29)
[2018-09-28] MEDS: ASPIRIN 81 MG TABLET EC PO SCH (08:29)
[2018-09-28] MEDS: DILTIAZEM 240 MG CAP.ER.24H PO SCH (08:29)
[2018-09-28] MEDS: FERROUS SULFATE 325 MG TABLET PO SCH (08:29)
[2018-09-28] MEDS: INSULIN GLARGINE 100 UNITS/ML, PEN SQ-INSULIN SCH ×2 (08:30→20:52)
[2018-09-28 13:02] VITALS: BP 164/74
[2018-09-28 14:22] LABS: ANION GAP 3 mmol/L (5-15); CHLORIDE 103 mmol/L (98-107); CREATININE 2.02 mg/dL (0.7-1.3)
[2018-09-28 19:00] VITALS: BP 163/72
[2018-09-28] MEDS: ATORVASTATIN 40 MG TABLET PO SCH (20:52)
[2018-09-29] MEDS: GABAPENTIN 100 MG CAPSULE PO PRN (00:32)
[2018-09-29] MEDS: ACETAMINOPHEN 325 MG TABLET PO PRN (00:32)
[2018-09-29 00:34] VITALS: BP 150/72
[2018-09-29 06:34] LABS: ANION GAP 2 mmol/L (5-15); CALCIUM 8.9 mg/dL (8.5-10.1); CHLORIDE 104 mmol/L (98-107)
[2018-09-29 06:36] LABS: CREATININE 2.03 mg/dL (0.7-1.3)
[2018-09-29 07:00] VITALS: BP 170/90
[2018-09-29] MEDS: INSULIN LISPRO 100 UNITS/ML, PEN SQ-INSULIN SCH ×2 (07:00→11:00)
[2018-09-29] MEDS: DILTIAZEM 240 MG CAP.ER.24H PO SCH (08:05)
[2018-09-29] MEDS: APIXABAN 5 MG TABLET PO SCH (08:08)
[2018-09-29] MEDS: FERROUS SULFATE 325 MG TABLET PO SCH (08:08)
[2018-09-29] MEDS: ASPIRIN 81 MG TABLET EC PO SCH (08:08)
[2018-09-29] MEDS: FUROSEMIDE 20 MG TABLET PO SCH (08:08)
[2018-09-29] MEDS: METOPROLOL SUCCINATE 25 MG TAB.ER.24H PO SCH (08:09)
[2018-09-29] MEDS: ZIPRASIDONE 20MG CAPSULE PO SCH (08:09)
[2018-09-29] MEDS: INSULIN GLARGINE 100 UNITS/ML, PEN SQ-INSULIN SCH (11:07)
[2018-09-29] MEDS ORDERED: INSU100I11 SQ-INSULIN (11:43)
[2018-09-29] MEDS ORDERED: FURO40TA6 PO (11:43)
[2018-09-29] MEDS ORDERED: HYDR-3343 PO (11:43)
[2018-09-29] MEDS ORDERED: METO25TA91 PO (11:43)
[2018-09-29] MEDS ORDERED: INSU100I13 SQ-INSULIN (11:43)
[2018-09-29] MEDS ORDERED: GABA-826 PO (11:43)
[2018-09-29 11:54] VITALS: BP 167/85
[2018-09-29] MEDS ORDERED: METOPROLOL TARTRATE 25 MG TABLET PO ONE (12:30)
[2018-09-29] MEDS ORDERED: FUROSEMIDE 40 MG TABLET PO SCH (21:00)
[2018-09-30] MEDS ORDERED: METOPROLOL TARTRATE 25 MG TABLET PO SCH (09:00)
== END 2018-09-29 15:34 | DRG 682 ==
LOC: ED 20:47 → EDIP 20:55 → 4WST 23:50
PROVIDERS: ADMIT Internal Medicine; ATTEND Internal Medicine
DX: N17.0 Acute kidney failure with tubular necrosis (principal); I50.23 Acute on chronic systolic (congestive) heart failure; I13.0 Hypertensive heart and chronic kidney disease with heart failure and stage 1 through stage 4 chronic kidney disease, or unspecified chronic kidney disease; E46 Unspecified protein-calorie malnutrition; E87.1 Hypo-osmolality and hyponatremia; D68.59 Other primary thrombophilia; I31.3 Pericardial effusion (noninflammatory); L03.119 Cellulitis of unspecified part of limb; Z68.43 Body mass index [BMI] 50.0-59.9, adult; J96.10 Chronic respiratory failure, unspecified whether with hypoxia or hypercapnia; E87.5 Hyperkalemia; D63.8 Anemia in other chronic diseases classified elsewhere; E11.22 Type 2 diabetes mellitus with diabetic chronic kidney disease; E66.01 Morbid (severe) obesity due to excess calories; E78.00 Pure hypercholesterolemia, unspecified; E78.5 Hyperlipidemia, unspecified; F20.9 Schizophrenia, unspecified; F31.9 Bipolar disorder, unspecified; F99 Mental disorder, not otherwise specified; G47.33 Obstructive sleep apnea (adult) (pediatric); I27.20 Pulmonary hypertension, unspecified; I48.2 Chronic atrial fibrillation; I87.2 Venous insufficiency (chronic) (peripheral); J44.9 Chronic obstructive pulmonary disease, unspecified; K74.60 Unspecified cirrhosis of liver; N18.3 Chronic kidney disease, stage 3 (moderate); Z79.01 Long term (current) use of anticoagulants; Z79.4 Long term (current) use of insulin; Z79.899 Other long term (current) drug therapy; Z83.3 Family history of diabetes mellitus; Z87.891 Personal history of nicotine dependence; Z91.19 Patient's noncompliance with other medical treatment and regimen; Z99.81 Dependence on supplemental oxygen
CPT/HCPCS: 36415; 71045; 76770; 80048; 80053; 80069; 81001; 82306; 82436; 82570; 82962; 83690; 83735; 83880; 84133; 84156; 84300; 84550; 85025; 86480; 87205; 93005; 93306; 94640; 96365; 96372; 96375; 99285; G0378; J0610; J1940; J7620; J0360; J1815